=== PATIENT | female | born 1940 | race Caucasian/White ===

== ENCOUNTER 2017-02-12 19:03 | Emergency (ER) | payer MEDICARE, BC ==
[2017-02-12 19:37] VITALS: BP 156/82
--- NOTE | 2017-02-12 20:07 | EDM.PDOC ---
[id number]: TICK BITE Time Seen by Provider: 02/12/17 20:10 Source of Information: Reports: Patient History Limitations: Reports: No Limitations - History of Present Illness INITIAL COMMENTS - FREE TEXT/NARRATIVE: pt has a small tick imbedded in area between her breasts. She was not able to get it completely out. Onset: Today Duration: Hour(s):, Other (pt removed part of the tick. ) Location: Reports: Chest Associated Symptoms: Reports: No Other Symptoms - Related Data Allergies Allergy/AdvReac Type Severity Reaction Status Date / Time oxaprozin [Oxaprozin] Allergy Unknown Cannot Unverified 02/12/17 19:38 Remember Home Meds: Home Meds Aspirin [Low Dose Aspirin EC] 81 mg PO DAILY 06/26/14 [History] Clopidogrel Bisulfate [Clopidogrel] 75 mg PO DAILY 06/26/14 [History] Levothyroxine Sodium [Synthroid] 75 mcg PO DAILY 06/26/14 [History] Lisinopril 40 mg PO DAILY 06/26/14 [History] Multivitamin [Daily Multiple Vitamin] 1 tab PO DAILY 06/26/14 [History] Rosuvastatin [Crestor] 40 mg PO BEDTIME 06/26/14 [History] amLODIPine Besylate [Amlodipine Besylate] 10 mg PO DAILY 06/26/14 [History] metFORMIN [Glucophage XR] 500 mg PO DAILY 06/26/14 [History] Atenolol 50 mg PO DAILY #30 tablet 06/28/14 [Rx] Hydrocodone/Acetaminophen [Hydrocodon-Acetaminophen 5-325] 1 - 2 tab PO Q6H PRN 11/25/14 [History] Omeprazole [Prilosec] 20 mg PO DAILY 11/25/14 [History] predniSONE [Prednisone] 5 mg PO DAILY 11/25/14 [History] Past Medical History - Infectious Disease History Infectious Disease History: Reports: Chicken Pox Social & Family History - Tobacco Use Smoking Status *Q: Never Smoker Years of Tobacco use: 30 Used Tobacco, but Quit: Yes Month Tobacco Last Used: 1998 Second Hand Smoke Exposure: No - Caffeine Use Caffeine Use: Reports: Coffee, Tea - Alcohol Use Days Per Week of Alcohol Use: 0 Number of Drinks Per Day: 1 Total Drinks Per Week: 0 - Recreational Drug Use Recreational Drug Use: No ED ROS GENERAL - Review of Systems Review Of Systems: See Below Constitutional: Reports: No Symptoms HEENT: Reports: No Symptoms Respiratory: Reports: No Symptoms Cardiovascular: Reports: No Symptoms Endocrine: Reports: No Symptoms GI/Abdominal: Reports: No Symptoms : Reports: No Symptoms Skin: Reports: Other ( deer tick stuck between her breasts. This was cleaned and removed without difficulty. ) ED EXAM, ANIMAL BITE - Physical Exam Exam: See Below Exam Limited By: No Limitations General Appearance: Alert Ears: Normal External Exam Nose: Normal Inspection Throat/Mouth: Normal Inspection Skin Exam: Other (pt had a deer tick stuck between her breasts . Only part of the tick was removed. The rest was removed with out difficulty) Course - Vital Signs Last Recorded V/S: Last Vital Signs Temp 35.9 C 02/12/17 19:38 Pulse 70 02/12/17 19:38 Resp 16 02/12/17 19:38 BP 156/82 H 02/12/17 19:38 Pulse Ox 95 02/12/17 19:38 Departure - Departure Time of Disposition: 20:05 Disposition: Home, Self-Care 01 Condition: fair Clinical Impression: Dermacentor andersoni tick bite - Discharge Information Instructions: Insect Bite, [id number] Referrals: Ash Cox MD [Primary Care Provider] - Forms: ED Department Discharge Care Plan Goals: doxycyline 100mg bid for 7 days. moist warm packs.
== END 2017-02-12 20:24 | disposition home or self-care (01) ==
LOC: JP.ED 19:03
DX: S20.169A Insect bite (nonvenomous) of breast, unspecified breast, initial encounter (principal); Z88.8 Allergy status to other drugs, medicaments and biological substances; Z79.82 Long term (current) use of aspirin; Z79.84 Long term (current) use of oral hypoglycemic drugs; Z79.899 Other long term (current) drug therapy; W57.XXXA Bitten or stung by nonvenomous insect and other nonvenomous arthropods, initial encounter
CPT/HCPCS: 99282; 99283

== ENCOUNTER 2017-08-18 13:41 | Emergency (ER) | payer MEDICARE, BC ==
--- NOTE | 2017-08-18 14:21 | EDM.PDOC ---
ED HPI GENERAL MEDICAL PROBLEM - General Chief Complaint: Neuro Symptoms/Deficits Stated Complaint: MEDICAL VIA [facility] Time Seen by Provider: 08/18/17 14:00 Source of Information: Reports: Patient, EMS, Family History Limitations: Reports: No Limitations - History of Present Illness INITIAL COMMENTS - FREE TEXT/NARRATIVE: 77-year-old female had just finished a large meal when she felt the pain in her shoulders and felt uncomfortable. She then felt lightheaded and woozy, her speech was slurred and she became very pale and diaphoretic. She had had a previous stroke in the family got very concerned so called EMS. A family member was an EMT and took her blood pressure which was low and her pulse was only 60. When EMS arrived her symptoms were resolving, she was stable in route and had no neurologic deficits. She had no chest pain, shortness of breath, palpitations or other symptoms. Onset: Sudden Severity: Moderate Associated Symptoms: Reports: Diaphoresis, Weakness. Denies: Fever/Chills, Headaches, Nausea/Vomiting, Shortness of Breath Right Shoulder Pain Score (Numeric/FACES): 1 - Related Data Allergies Allergy/AdvReac Type Severity Reaction Status Date / Time oxaprozin [Oxaprozin] Allergy Unknown Cannot Verified 08/18/17 13:55 Remember Home Meds: Home Meds Aspirin [Low Dose Aspirin EC] 81 mg PO DAILY 06/26/14 [History] Clopidogrel Bisulfate [Clopidogrel] 75 mg PO DAILY 06/26/14 [History] Levothyroxine Sodium [Synthroid] 75 mcg PO DAILY 06/26/14 [History] Lisinopril 40 mg PO DAILY 06/26/14 [History] Multivitamin [Daily Multiple Vitamin] 1 tab PO DAILY 06/26/14 [History] Rosuvastatin [Crestor] 40 mg PO BEDTIME 06/26/14 [History] amLODIPine Besylate [Amlodipine Besylate] 10 mg PO DAILY 06/26/14 [History] metFORMIN [Glucophage XR] 500 mg PO DAILY 06/26/14 [History] Atenolol 50 mg PO DAILY #30 tablet 06/28/14 [Rx] Hydrocodone/Acetaminophen [Hydrocodon-Acetaminophen 5-325] 1 - 2 tab PO Q6H PRN 11/25/14 [History] Omeprazole [Prilosec] 20 mg PO DAILY 11/25/14 [History] predniSONE [Prednisone] 5 mg PO DAILY 11/25/14 [History] Past Medical History Cardiovascular History: Reports: High Cholesterol, Hypertension 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: HYSTERECTOMY Neurological History: Reports: CVA Endocrine/Metabolic History: Reports: Diabetes, Type II, Hypothyroidism Other Hematologic History: BILAT LE DVT - Infectious Disease History Infectious Disease History: Reports: Chicken Pox - Past Surgical History Other HEENT Surgeries/Procedures: PREVIOUS CVA 2001 Musculoskeletal Surgical History: Reports: Knee Replacement Social & Family History - Tobacco Use Smoking Status *Q: Unknown Ever Smoked Years of Tobacco use: 30 Used Tobacco, but Quit: Yes Month Tobacco Last Used: 1998 Second Hand Smoke Exposure: No - Caffeine Use Caffeine Use: Reports: Coffee, Tea - Alcohol Use Days Per Week of Alcohol Use: 0 Number of Drinks Per Day: 1 Total Drinks Per Week: 0 - Recreational Drug Use Recreational Drug Use: No ED ROS GENERAL - Review of Systems Review Of Systems: See Below Constitutional: Denies: Fever, Chills Respiratory: Denies: Shortness of Breath Cardiovascular: Denies: Chest Pain, Palpitations GI/Abdominal: Denies: Abdominal Pain Musculoskeletal: Reports: Shoulder Pain (Bilateral shoulder pain), Other ( Chronic arthritic pains) Skin: Reports: Pallor, Diaphoresis ED EXAM, NEURO - Physical Exam Exam: See Below Exam Limited By: No Limitations General Appearance: Alert, No Apparent Distress Eye Exam: Bilateral Eye: Normal Inspection Throat/Mouth: Normal Inspection Neck: Normal Inspection Respiratory/Chest: No Respiratory Distress, Lungs Clear Cardiovascular: Regular Rate, Rhythm. No: Extra Beats GI/Abdominal: Normal Bowel Sounds Neurological: Alert, No Motor/Sensory Deficits, Oriented x 3 Psychiatric: Normal Affect, Normal Mood Skin Exam: Warm, Dry Course - Vital Signs Last Recorded V/S: Last Vital Signs Temp 97.9 F 08/18/17 13:49 Pulse 72 08/18/17 14:53 Resp 14 08/18/17 14:15 BP 119/58 L 08/18/17 14:53 Pulse Ox 94 L 08/18/17 13:49 - Re-Assessments/Exams Free Text/Narrative Re-Assessment/Exam: 08/18/17 14:20 Glucose was checked by EMS which was normal. EKG by EMS was also normal. 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 She was ambulated without difficulty so was discharged without any further workup. Departure - Departure Time of Disposition: 15:02 Disposition: Home, Self-Care 01 Condition: Good Clinical Impression: Vasovagal near syncope - Discharge Information Instructions: Near-Syncope, [id number] Referrals: Ash Cox MD [Primary Care Provider] - Forms: ED Department Discharge Care Plan Goals: Continue your current medications, stay hydrated and increase activity as tolerated. Return anytime if worsening or concerns.
[2017-08-18 14:54] VITALS: BP 119/58
== END 2017-08-18 15:03 | disposition home or self-care (01) ==
LOC: JP.ED 13:41
DX: R55 Syncope and collapse (principal); I10 Essential (primary) hypertension; E11.9 Type 2 diabetes mellitus without complications; E03.9 Hypothyroidism, unspecified; Z79.84 Long term (current) use of oral hypoglycemic drugs; Z79.899 Other long term (current) drug therapy; Z79.82 Long term (current) use of aspirin; Z88.8 Allergy status to other drugs, medicaments and biological substances
CPT/HCPCS: 99283; 99284

== ENCOUNTER 2020-03-15 08:36 | Emergency (ER) | payer MEDICARE ==
[2020-03-15] MEDS ORDERED: Ondansetron 4 MG/2 ML SDV IVPUSH ONE (09:43)
[2020-03-15] MEDS ORDERED: HYDROmorphone 0.5 MG/0.5 ML Syringe IVPUSH ONE (09:44)
[2020-03-15] MEDS ORDERED: Sodium Chloride 0.9% 1,000 ML IV SCH ×2 (09:45→11:15)
--- NOTE | 2020-03-15 11:15 | CRLCT ---
INDICATION: Right-sided pain, renal insufficiency TECHNIQUE: CT abdomen and pelvis without contrast. COMPARISON: None FINDINGS: The visualized portions of the lung bases are clear. There is moderate right hydronephrosis with a 8 mm obstructing stone (HU 310) in the proximal right ureter, approximately 3.5 cm from the ureteropelvic junction. There is moderate perinephric fat stranding. Additional punctate stones are seen within both kidneys. The largest stone on the left is seen within the upper pole and measures 4 mm. Negative for left hydronephrosis. The bladder is partially distended and unremarkable. Evaluation of the abdominal viscera is limited due to lack of IV contrast. There is a 0.8 cm hypoattenuating lesion within the posterior aspect of the right hepatic lobe, too small to fully characterize, however likely represents a simple cyst. There remainder of the unenhanced liver is unremarkable. The gallbladder is nondistended. The spleen, pancreas and adrenal glands are unremarkable. There are no dilated loops of small bowel to suggest obstruction.The appendix is not visualized.There is a trace amount of free fluid within the pelvis. Negative for intraperitoneal free air. The visualized osseous structures are unremarkable. There is moderate atherosclerotic calcification of the abdominal aorta and common iliacs. IMPRESSION: 1. Moderate right hydronephrosis and perinephric inflammatory changes with a 8 mm obstructing stone in the proximal right ureter. 2. Additional nonobstructing stones bilaterally. Dictated by Olivia Serra MD @ 03/15/2020 11:14:35 AM Please note that all CT scans at this facility use dose modulation, iterative reconstruction, and/or weight-based dosing when appropriate to reduce radiation dose to as low as reasonably achievable. Dictated by: Olivia Serra MD @ 03/15/2020 11:14:49 (Electronically Signed)
--- NOTE | 2020-03-15 12:31 | EDM.PDOC ---
ED HPI GENERAL MEDICAL PROBLEM - General Chief Complaint: Abdominal Pain Stated Complaint: R ABD PAIN, DIARRHEA, VOMITING Time Seen by Provider: 03/15/20 09:15 Source of Information: Reports: Patient, Family History Limitations: Reports: No Limitations - History of Present Illness INITIAL COMMENTS - FREE TEXT/NARRATIVE: pt arrived with rt sided abdomanal pain. She started vomiting in the nite and she ended up with alot of loose stools. The pain has been difficult. Onset: Today, Other ( started in the nite. ) Duration: Hour(s): Location: Reports: Abdomen Associated Symptoms: Reports: Nausea/Vomiting, Other ( diarrhea) Right Lower Abdomen Pain Score (Numeric/FACES): 7 - Related Data Allergies Allergy/AdvReac Type Severity Reaction Status Date / Time oxaprozin [Oxaprozin] Allergy Unknown Cannot Verified 03/15/20 08:59 Remember Home Meds: Home Meds Aspirin [Low Dose Aspirin EC] 81 mg PO DAILY 06/26/14 [History] Clopidogrel Bisulfate [Clopidogrel] 75 mg PO DAILY 06/26/14 [History] Levothyroxine Sodium [Synthroid] 75 mcg PO DAILY 06/26/14 [History] Lisinopril 40 mg PO DAILY 06/26/14 [History] Multivitamin [Daily Multiple Vitamin] 1 tab PO DAILY 06/26/14 [History] Rosuvastatin [Crestor] 40 mg PO BEDTIME 06/26/14 [History] amLODIPine Besylate [Amlodipine Besylate] 10 mg PO DAILY 06/26/14 [History] metFORMIN [Glucophage XR] 500 mg PO DAILY 06/26/14 [History] atenoloL [Atenolol] 50 mg PO DAILY #30 tablet 06/28/14 [Rx] Omeprazole [Prilosec] 20 mg PO DAILY 11/25/14 [History] Past Medical History HEENT History: Reports: Impaired Vision Cardiovascular History: Reports: High Cholesterol, Hypertension 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 Neurological History: Reports: CVA Endocrine/Metabolic History: Reports: Diabetes, Type II, Hypothyroidism Other Hematologic History: BILAT LE DVT - Infectious Disease History Infectious Disease History: Reports: Chicken Pox, Measles, Mumps - Past Surgical History Other HEENT Surgeries/Procedures: PREVIOUS CVA 2001 GI Surgical History: Reports: Colonoscopy Female Surgical History: Reports: Hysterectomy, Salpingo-Oophorectomy Musculoskeletal Surgical History: Reports: Knee Replacement Social & Family History - Tobacco Use Smoking Status *Q: Former Smoker Years of Tobacco use: 30 Packs/Tins Daily: 1 Used Tobacco, but Quit: Yes Month/Year Tobacco Last Used: 1998 Second Hand Smoke Exposure: No - Caffeine Use Caffeine Use: Reports: Coffee - Recreational Drug Use Recreational Drug Use: No ED ROS GENERAL - Review of Systems Review Of Systems: See Below Constitutional: Reports: Diaphoresis HEENT: Reports: No Symptoms Respiratory: Reports: No Symptoms Cardiovascular: Reports: No Symptoms Endocrine: Reports: No Symptoms GI/Abdominal: Reports: Abdominal Pain, Diarrhea, Nausea, Vomiting : Reports: No Symptoms Musculoskeletal: Reports: No Symptoms Skin: Reports: No Symptoms ED EXAM, GI/ABD - Physical Exam Exam: See Below Text/Narrative:: pt arrived with severe rt lower abdomanal pain. She has been vomiting most of the nite. Exam Limited By: No Limitations General Appearance: Alert, Anxious, Moderate Distress, Other (pupils equal and reactive to lite. ) Ears: Normal TMs Nose: Normal Inspection Throat/Mouth: Normal Inspection Head: Atraumatic Neck: Normal Inspection Respiratory/Chest: No Respiratory Distress Cardiovascular: Regular Rate, Rhythm GI/Abdominal Exam: Soft, Tender, Other (pt is tender in the rt lower abdoman. ) (Female) Exam: Deferred Rectal (Female) Exam: Deferred Back Exam: Normal Inspection Extremities: Normal Inspection Course - Vital Signs Last Recorded V/S: Last Vital Signs Temp 36.0 C L 03/15/20 09:11 Pulse 73 03/15/20 12:52 Resp 16 03/15/20 09:11 BP 134/53 L 03/15/20 12:52 Pulse Ox 94 L 03/15/20 12:52 - Orders/Labs/Meds Labs: Laboratory Tests 03/15/20 03/15/20 03/15/20 Range/Units 08:56 09:06 09:06 WBC 10.4 (4.5-11.0) K/uL RBC 3.55 (3.30-5.50) M/uL Hgb 10.4 L (12.0-15.0) g/dL Hct 32.8 L (36.0-48.0) % MCV 92 (80-98) fL MCH 29 (27-31) pg MCHC 32 (32-36) % Plt Count 277 (150-400) K/uL Neut % (Auto) 81 H (36-66) % Lymph % (Auto) 13 L (24-44) % [place] % (Auto) 6 (2-6) % Eos % (Auto) 0 L (2-4) % Baso % (Auto) 0 (0-1) % Sodium 141 (140-148) mmol/L Potassium 4.3 (3.6-5.2) mmol/L Chloride 105 (100-108) mmol/L Carbon Dioxide 22 (21-32) mmol/L Anion Gap 14.1 H (5.0-14.0) mmol/L BUN 33 H (7-18) mg/dL Creatinine 2.4 H D (0.6-1.0) mg/dL Est Cr Clr Drug Dosing 15.46 mL/min Estimated GFR (MDRD) 19 L (>60) Glucose 171 H (74-106) mg/dL Calcium 10.0 (8.5-10.1) mg/dL Total Bilirubin 0.3 (0.2-1.0) mg/dL AST 19 (15-37) U/L ALT 29 (12-78) U/L Alkaline Phosphatase 175 H D (46-116) U/L C-Reactive Protein 1.66 H (0.0-0.3) mg/dL Total Protein 7.2 (6.4-8.2) g/dL Albumin 3.3 L (3.4-5.0) g/dL Globulin 3.9 H (2.3-3.5) g/dL Albumin/Globulin Ratio 0.9 L (1.2-2.2) Urine Color Yellow (YELLOW) Urine Appearance Cloudy A (CLEAR) Urine pH 6.0 (5.0-8.0) Ur Specific [place] 1.025 (1.008-1.030) Urine Protein >=300 H (NEGATIVE) mg/dL Urine Glucose (UA) Negative (NEGATIVE) mg/dL Urine Ketones Trace H (NEGATIVE) mg/dL Urine Occult Blood Large H (NEGATIVE) Urine Nitrite Negative (NEGATIVE) Urine Bilirubin Negative (NEGATIVE) Urine Urobilinogen 0.2 (0.2-1.0) EU/dL Ur Leukocyte Esterase Negative (NEGATIVE) Urine RBC 50-75 H (0-5) Urine WBC 0-5 (0-5) Ur Epithelial Cells Not seen Amorphous Sediment Not seen Urine Bacteria Not seen Urine Mucus Moderate Urine Other Meds: Medications Discontinued Medications Generic Name Dose Route Start Last Admin Trade Name Gil PRN Reason Stop Dose Admin Hydromorphone HCl 0.5 mg 03/15/20 09:44 03/15/20 11:01 Dilaudid IVPUSH 03/15/20 09:45 0.5 mg ONETIME ONE Administration Sodium Chloride 1,000 mls @ 999 mls/hr 03/15/20 09:45 03/15/20 10:59 Normal Saline IV 999 mls/hr ASDIRECTED NAY Administration Sodium Chloride 1,000 mls @ 500 mls/hr 03/15/20 11:15 03/15/20 12:44 Normal Saline IV 500 mls/hr ASDIRECTED NAY Administration Ondansetron HCl 4 mg 03/15/20 09:43 03/15/20 11:00 Zofran IVPUSH 03/15/20 09:44 4 mg ONETIME ONE Administration Tamsulosin HCl 0.4 mg 03/15/20 12:50 03/15/20 12:57 Flomax PO 03/15/20 12:51 0.4 mg ONETIME ONE Administration - Re-Assessments/Exams Free Text/Narrative Re-Assessment/Exam: 03/15/20 12:26 pt has a gfr of 19. She recently had much better kidney funtion. She does not have a fever 03/15/20 13:11 pt has a 8mm stone in the rt ureter ith obstruction 03/15/20 13:11 pt was given rocephen 1 gm iv. 03/17/20 07:13 Departure - Departure Time of Disposition: 13:12 Disposition: DC/Tfer to Acute Hospital 02 Condition: Fair Clinical Impression: Renal insufficiency, Ureteral calculus, right - Discharge Information Referrals: PCP,None [Primary Care Provider] - Forms: ED Department Discharge Care Plan Goals: transfer to [facility]. Sepsis Event Note (ED) - Evaluation Sepsis Screening Result: No Definite Risk
[2020-03-15] MEDS ORDERED: Tamsulosin 0.4 MG Cap.ER PO ONE (12:50)
[2020-03-15 13:22] VITALS: BP 134/53; PULSE 73
[2020-03-16] MEDS ORDERED: Tamsulosin 0.4 MG Cap.ER PO SCH (09:00)
== END 2020-03-15 13:53 ==
LOC: JP.ED 08:36
DX: N13.2 Hydronephrosis with renal and ureteral calculous obstruction (principal); N28.9 Disorder of kidney and ureter, unspecified; R11.2 Nausea with vomiting, unspecified; I10 Essential (primary) hypertension; E78.00 Pure hypercholesterolemia, unspecified; E03.9 Hypothyroidism, unspecified; E11.9 Type 2 diabetes mellitus without complications; Z88.6 Allergy status to analgesic agent; Z79.82 Long term (current) use of aspirin; Z79.899 Other long term (current) drug therapy; Z86.73 Personal history of transient ischemic attack (TIA), and cerebral infarction without residual deficits; Z87.891 Personal history of nicotine dependence
CPT/HCPCS: 36415; 74176; 80053; 81001; 82272; 85025; 86140; 87086; 96361; 96374; 96375; 99285; A9270; J1170; J2405; J7030

== ENCOUNTER 2020-12-11 10:52 | Observation (INO) | payer MEDICARE ==
[2020-12-11] MEDS ORDERED: diphenhydrAMINE 25 MG Cap PO ONE (10:56)
[2020-12-11] MEDS ORDERED: Acetaminophen 325 MG Tab PO ONE (10:56)
[2020-12-11] MEDS ORDERED: Sodium Chloride 0.9% 1,000 ML IV SCH (12:30)
--- NOTE | 2020-12-11 13:05 | PCM.HP.2 ---
H&P History of Present Illness - General Date of Service: 12/11/20 Admit Problem/Dx: Admission Diagnosis/Problem Admission Diagnosis/Problem Anemia Source of Information: Patient, Family, Provider, RN Notes Reviewed History Limitations: Reports: No Limitations - History of Present Illness Initial Comments - Free Text/Narative: Ms. Kerr is an 80-year-old woman who was admitted as a direct admission from the outpatient area with anemia and severe thrombocytopenia. She has a known history of stage IV pancreatic carcinoma and has been receiving chemotherapy every other week. There has been a good response with current chemotherapeutic regimen and a good decrease in tumor marker. Since her last chemotherapy approximately 1 week ago she has felt more weak and tired. Appetite has been somewhat poor. Labs were obtained today, hemoglobin was found to be 7.5 which is a decrease over the past week and platelets were 7000. She has had no evidence of spontaneous bleeding or underlying infection. During the past week is also developed mild to moderate peripheral edema both lower extremities as well as her right upper extremity. She has had a history of chronic kidney disease stage III, over the past week there has been an increase in her creatinine from 1.4 to 2.1. - Related Data Allergies/Adverse Reactions: Allergies Allergy/AdvReac Type Severity Reaction Status Date / Time oxaprozin [Oxaprozin] Allergy Unknown Cannot Verified 11/14/20 08:39 Remember Home Medications: Home Meds Aspirin [Low Dose Aspirin EC] 81 mg PO DAILY 06/26/14 [History] Clopidogrel Bisulfate [Clopidogrel] 75 mg PO DAILY 06/26/14 [History] Levothyroxine Sodium [Synthroid] 75 mcg PO DAILY 06/26/14 [History] Rosuvastatin [Crestor] 40 mg PO BEDTIME 06/26/14 [History] amLODIPine Besylate [Amlodipine Besylate] 10 mg PO DAILY 06/26/14 [History] Omeprazole [Prilosec] 20 mg PO DAILY 11/25/14 [History] Acetaminophen 650 mg PO Q6HR PRN 09/05/20 [History] Cholecalciferol (Vitamin D3) [Vitamin D3] 1,000 unit PO DAILY 09/05/20 [History] Cyanocobalamin (Vitamin B-12) [Vitamin B-12] 1,000 mcg PO DAILY 09/05/20 [History] Docusate Sodium [Colace] 100 mg PO BID PRN 09/05/20 [History] Metoprolol Tartrate [Lopressor] 50 mg PO BID 09/05/20 [History] bisacodyL [Dulcolax] 5 mg PO DAILY PRN 09/05/20 [History] Past Medical History HEENT History: Reports: Impaired Vision Cardiovascular History: Reports: High Cholesterol, Hypertension 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: Other OB/BYN History: HYSTERECTOMY Neurological History: Reports: CVA Endocrine/Metabolic History: Reports: Diabetes, Type II, Hypothyroidism Other Hematologic History: BILAT LE DVT - Infectious Disease History Infectious Disease History: Reports: Chicken Pox, Measles, Mumps - Past Surgical History Other HEENT Surgeries/Procedures: PREVIOUS CVA 2001 GI Surgical History: Reports: Colonoscopy Female Surgical History: Reports: Hysterectomy, Salpingo-Oophorectomy Musculoskeletal Surgical History: Reports: Knee Replacement Social & Family History - Caffeine Use Caffeine Use: Reports: Coffee H&P Review of Systems - Review of Systems: Review Of Systems: See Below General: Reports: Malaise, Weakness, Fatigue, Decreased Appetite. Denies: Fever, Chills, Diaphoresis HEENT: Reports: No Symptoms Pulmonary: Reports: No Symptoms Cardiovascular: Reports: Edema. Denies: Chest Pain, Palpitations, Dyspnea on Exertion, Orthopnea, PND Gastrointestinal: Reports: No Symptoms Genitourinary: Reports: No Symptoms Musculoskeletal: Reports: No Symptoms Skin: Reports: No Symptoms Psychiatric: Reports: No Symptoms Neurological: Reports: No Symptoms Hematologic/Lymphatic: Reports: Anemia Immunologic: Reports: No Symptoms Exam - Exam Exam: See Below - Vital Signs Vital Signs: Last Vital Signs Temp 96.8 F L 12/11/20 12:32 Pulse 70 12/11/20 12:32 Resp 16 12/11/20 12:32 BP 118/59 L 12/11/20 12:32 Pulse Ox 99 12/11/20 12:32 - Exam Quality Assessment: DVT Prophylaxis General: Alert, Oriented, Cooperative, Mild Distress HEENT: Conjunctiva Clear, Hearing Intact, Mucosa Moist & [place], Normal Nasal Septum, Posterior Pharynx Clear, Pupils Equal Neck: Supple, Trachea Midline, +2 Carotid Pulse wo Bruit Lungs: Clear to Auscultation, Normal Respiratory Effort Cardiovascular: Regular Rate, Regular Rhythm, Normal S1, Normal S2. No: Systolic Murmur, Diastolic Murmur GI/Abdominal Exam: Soft, Non-Tender, No Organomegaly, No Distention Back Exam: Normal Inspection, Full Range of Motion Extremities: Non-Tender, Pedal Edema Skin: Warm, Dry, Intact Neurological: Cranial Nerves Intact, Strength Equal Bilateral, Normal Speech, Normal Tone, Sensation Intact. No: Focal Deficit Neuro Extensive - Mental Status: Alert, Oriented x3, Normal Mood/Affect, Normal Cognition, Memory Intact Sepsis Event Note - Focused Exam Vital Signs: Vital Signs Temp Pulse Resp BP Pulse Ox 12/11/20 12:32 96.8 F L 70 16 118/59 L 99 *Q Meaningful Use (ADM) - VTE *Q VTE Pharmacological Contraindications *Q: Thrombocytopenia - VTE Risk Assess *Q Each Risk Factor Represents 1 Point: None Total Score 1 Point Risk Factors: 0 Each Risk Factor Represents 2 Points: Malignancy (present or previous) Total Score 2 Point Risk Factors: 2 Each Risk Factor Represents 3 Points: Age 75 Years or Greater Total Score 3 Point Risk Factors: 3 Each Risk Factor Represents 5 Points: None Total Score 5 Point Risk Factors: 0 Venous Thromboembolism Risk Factor Score *Q: 5 Problem List Initiated/Reviewed/Updated: Yes Orders Last 24hrs: Active Orders 24 hr Category Date Time Status Patient Status Manage Transfer [TRANSFER] Routine ADT 12/11/20 12:06 Active PLATELETS [facility] [BBK] Routine Lab 12/11/20 10:54 Ordered RED BLOOD CELLS LP [BBK] Routine Lab 12/11/20 10:54 Ordered TYPE AND SCREEN [BBK] Routine Lab 12/11/20 10:54 Ordered Furosemide [Lasix] Med 12/11/20 14:00 Once 20 mg IVPUSH ONETIME ONE Sodium Chloride 0.9% [Normal Saline] 1,000 ml Med 12/11/20 12:30 Active IV ASDIRECTED Transfuse Platelets [COMM] Urgent Oth 12/11/20 16:00 Ordered Transfuse Red Blood Cells [COMM] Urgent Oth 12/11/20 10:54 Ordered Resuscitation Status Routine Resus Stat 12/11/20 12:08 Ordered Medication Orders Furosemide (Furosemide 20 Mg/2 Ml Vial) 20 mg IVPUSH ONETIME ONE Stop: 12/11/20 14:01 Sodium Chloride (Normal Saline) 1,000 mls @ 50 mls/hr IV ASDIRECTED NAY Stop: 12/11/20 18:00 Last Admin: 12/11/20 12:15 Dose: 50 mls/hr Documented by: YEFRI Assessment/Plan Comment:: ASSESSMENT AND PLAN ANEMIA AND THROMBOCYTOPENIA-secondary to recent chemotherapy, there is also leukopenia but not absolute neutropenia -Transfuse 2 units of red blood cells -Transfuse 1 unit of platelets -Follow-up labs in a.m. STAGE IV PANCREATIC CARCINOMA-she has been receiving palliative chemotherapy CHRONIC KIDNEY DISEASE STAGE IIIb-creatinine has increased over the last week and now to 2.1. Possibly secondary to dehydration and intravascular volume depletion -Closely monitor urine output and renal function -Reassess labs in a.m. PERIPHERAL EDEMA-mild edema both lower extremities, more prominent mild to moderate edema right upper extremity -She will receive furosemide 20 mg IV after first unit of red blood cells -Reassess in a.m. MAINTENANCE ISSUES -DVT prophylaxis; hold on anticoagulation because of thrombocytopenia -GI prophylaxis; not indicated -Maddox catheter; not indicated -Nutrition; regular diet -Nicotine dependence; not required CODE STATUS-DNR/DNI ADMISSION STATUS-this patient will be admitted to observation status, expect no more than a one night hospital stay for evaluation and management of problems as outlined above. DISPOSITION-anticipate discharge to home after the hospital stay. PRIMARY CARE PROVIDER-Dr. Cox - Mortality Measure Prognosis:: Poor
[2020-12-11] MEDS ORDERED: Furosemide 20 MG/2 ML VIAL IVPUSH ONE (14:00)
[2020-12-11] MEDS ORDERED: Polyethylene Glycol 3350 Powder 17 GM Packet PO PRN (16:59)
[2020-12-11] MEDS ORDERED: Sodium Chloride 0.9% 10 ML Syringe FLUSH PRN (16:59)
[2020-12-11] MEDS ORDERED: Acetaminophen 325 MG Tab PO PRN (16:59)
[2020-12-11] MEDS ORDERED: Ondansetron 4 MG/2 ML SDV IV PRN (16:59)
[2020-12-11] MEDS ORDERED: Bisacodyl 5 MG Tab PO PRN (16:59)
[2020-12-11] MEDS ORDERED: Albuterol 0.083% 2.5 MG/3 ML Neb Soln NEB PRN (16:59)
[2020-12-11] MEDS ORDERED: Docusate Sodium 100 MG Cap PO PRN (16:59)
[2020-12-11] MEDS: Metoprolol Tartrate 50 MG Tab **OWN MED PO SCH (20:25)
[2020-12-11] MEDS ORDERED: Rosuvastatin 10 MG Tab PO SCH (21:00)
[2020-12-11] MEDS ORDERED: Metoprolol Tartrate 50 MG Tab PO SCH (21:00)
[2020-12-12] MEDS ORDERED: OMEPRAZOLE 20MG CAP (PTOM) PO SCH (07:30)
[2020-12-12] MEDS ORDERED: Pantoprazole 40 MG Tab.CR PO SCH (07:30)
[2020-12-12] MEDS ORDERED: Levothyroxine 25 MCG Tab PO SCH (07:30)
[2020-12-12] MEDS ORDERED: LEVOTHYROXINE 75MCG TAB (PTOM) PO SCH (07:30)
[2020-12-12 09:26] VITALS: BP 148/55; PULSE 82
[2020-12-12] MEDS: Metoprolol Tartrate 50 MG Tab **OWN MED PO SCH (09:29)
--- NOTE | 2020-12-12 10:44 | PCM.DCSUM1 ---
Discharge Summary - Hospital Course Brief History: Ms. Kerr is an 80-year-old woman who was admitted as a direct admission, to observation status, from outpatient area with anemia and thrombocytopenia, secondary to recent chemotherapy for stage IV pancreatic carcinoma. - Discharge Data Discharge Date: 12/12/20 Discharge Disposition: Home, Self-Care 01 Condition: Fair - Referral to Home Health Primary Care Physician: PCP None - Discharge Diagnosis/Problem(s) (1) Anemia SNOMED Code(s): 463176282 ICD Code: D64.9 - ANEMIA, UNSPECIFIED Status: Acute Current Visit: Yes (2) Thrombocytopenia SNOMED Code(s): 328096052 ICD Code: D69.6 - THROMBOCYTOPENIA, UNSPECIFIED Status: Acute Current Visit: Yes (3) Pancreatic carcinoma SNOMED Code(s): 925463939 ICD Code: C25.9 - MALIGNANT NEOPLASM OF PANCREAS, UNSPECIFIED Status: Acute Current Visit: Yes (4) Renal insufficiency SNOMED Code(s): 976515983, 705499063 ICD Code: N28.9 - DISORDER OF KIDNEY AND URETER, UNSPECIFIED Status: Acute Current Visit: No - Patient Summary/Data Hospital Course: Ms. Kerr is an 80-year-old woman who was admitted as a direct admission from the outpatient area with anemia and severe thrombocytopenia. She has a known history of stage IV pancreatic carcinoma and has been receiving chemotherapy every other week. There has been a good response with current chemotherapeutic regimen and a good decrease in tumor marker. Since her last chemotherapy approximately 1 week ago she has felt more weak and tired. Appetite has been somewhat poor. Labs were obtained today, hemoglobin was found to be 7.5 which is a decrease over the past week and platelets were 7000. She has had no evidence of spontaneous bleeding or underlying infection. During the past week is also developed mild to moderate peripheral edema both lower extremities as well as her right upper extremity. She has had a history of chronic kidney disease stage III, over the past week there has been an increase in her creatinine from 1.4 to 2.1. On admission blood and platelet infusions were continued as previously ordered. She did receive IV furosemide after the first unit of red blood cells. She remained stable throughout the night and by the following morning reported that she was feeling improved with increase in energy. Globin level had come up to 9.2 and platelets were 30,000. Renal function remained stable with a creatinine of 2.2. She did not receive fluids during hospitalization because of the large amount of blood products that she did receive. We discussed options for management including staying another night for IV fluids to see if this improves renal function. Peripheral edema had improved significantly with almost total resolution of peripheral edema in the legs there was still mild edema noted in the right upper extremity. She preferred to be discharged but will agree to come in for laboratory studies on December 14. She will attempt to increase fluid intake and will return sooner if she has further difficulty. Activity will be as tolerated and she will resume her usual diet. She already has follow-up appointment scheduled with oncology for December 16. - Patient Instructions Diet: Usual Diet as Tolerated Activity: As Tolerated Other/Special Instructions: She already has follow-up scheduled with oncology for December 16. Please schedule follow-up laboratory studies at the hospital lab for Tuesday morning; BMP and CBC with differential. Have the patient wait until results are available and I will review them with her. - Discharge Plan *PRESCRIPTION DRUG MONITORING PROGRAM REVIEWED*: Not Applicable *COPY OF PRESCRIPTION DRUG MONITORING REPORT IN PATIENT EDWARD: Not Applicable Home Medications: Home Meds Levothyroxine Sodium [Synthroid] 75 mcg PO DAILY 06/26/14 [History] Rosuvastatin [Crestor] 40 mg PO BEDTIME 06/26/14 [History] amLODIPine Besylate [Amlodipine Besylate] 10 mg PO DAILY 06/26/14 [History] Omeprazole [Prilosec] 20 mg PO DAILY 11/25/14 [History] Acetaminophen 650 mg PO Q6HR PRN 09/05/20 [History] Cholecalciferol (Vitamin D3) [Vitamin D3] 1,000 unit PO DAILY 09/05/20 [History] Cyanocobalamin (Vitamin B-12) [Vitamin B-12] 1,000 mcg PO DAILY 09/05/20 [History] Docusate Sodium [Colace] 100 mg PO BID PRN 09/05/20 [History] Metoprolol Tartrate [Lopressor] 50 mg PO BID 09/05/20 [History] bisacodyL [Dulcolax] 5 mg PO DAILY PRN 09/05/20 [History] Referrals: Arlyn Cerda MD [Ordering Only Provider] - 12/16/20 (Please refer to [employer] printout of upcoming appointment times on 12/16/20) - Discharge Summary/Plan Comment DC Time >30 min.: No - Patient Data Vitals - Most Recent: Last Vital Signs Temp 97.8 F 12/12/20 07:55 Pulse 82 12/12/20 09:29 Resp 16 12/12/20 07:55 BP 148/55 H 12/12/20 09:29 Pulse Ox 99 12/12/20 07:55 Weight - Most Recent: 138 lb 7.205 oz I&O - Last 24 hours: Intake & Output 12/11/20 12/12/20 12/12/20 22:59 06:59 14:59 Intake Total 901 360 Balance 901 360 Lab Results - Last 24 hrs: Laboratory Results - last 24 hr 12/11/20 12/12/20 12/12/20 Range/Units 12:30 05:13 05:13 WBC 2.7 L (4.5-11.0) K/uL RBC 3.06 L (3.30-5.50) M/uL Hgb 9.2 L (12.0-15.0) g/dL Hct 27.3 L (36.0-48.0) % MCV 89 (80-98) fL MCH 30 (27-31) pg MCHC 34 (32-36) % Plt Count 30 L (150-400) K/uL Neut % (Auto) 59 (36-66) % Lymph % (Auto) 37 (24-44) % Bradley % (Auto) 1 L (2-6) % Eos % (Auto) 3 (2-4) % Baso % (Auto) 0 (0-1) % Sodium 143 (140-148) mmol/L Potassium 5.2 (3.6-5.2) mmol/L Chloride 109 H (100-108) mmol/L Carbon Dioxide 20 L (21-32) mmol/L Anion Gap 19.2 H (5.0-14.0) mmol/L BUN 45 H (7-18) mg/dL Creatinine 2.3 H (0.6-1.0) mg/dL Est Cr Clr Drug Dosing 15.17 mL/min Estimated GFR (MDRD) 20 L (>60) Glucose 97 (74-106) mg/dL Calcium 8.4 L D (8.5-10.1) mg/dL Total Bilirubin 0.5 D (0.2-1.0) mg/dL AST 30 (15-37) U/L ALT 28 (12-78) U/L Alkaline Phosphatase 116 (46-116) U/L Total Protein 5.2 L (6.4-8.2) g/dL Albumin 2.4 L (3.4-5.0) g/dL Globulin 2.8 (2.3-3.5) g/dL Albumin/Globulin Ratio 0.9 L (1.2-2.2) Blood Type O POSITIVE Gel Antibody Screen Negative Crossmatch See Detail Med Orders - Current: Current Medications Acetaminophen (Acetaminophen 325 Mg Tab) 650 mg PO Q4H PRN PRN Reason: Pain (Mild 1-3)/fever Last Admin: 12/12/20 02:29 Dose: 650 mg Documented by: Albuterol (Albuterol 0.083% 2.5 Mg/3 Ml Neb Soln) 2.5 mg NEB Q4H PRN PRN Reason: Shortness Of Breath/wheezing Bisacodyl (Bisacodyl 5 Mg Tab) 5 mg PO DAILY PRN PRN Reason: Constipation Docusate Sodium (Docusate Sodium 100 Mg Cap) 100 mg PO BID PRN PRN Reason: Constipation Metoprolol Tartrate (Metoprolol Tartrate 50 Mg Tab Own Med) 50 mg PO BID [facility] Last Admin: 12/12/20 09:29 Dose: 50 mg Documented by: Ondansetron HCl (Ondansetron 4 Mg/2 Ml Sdv) 4 mg IV Q4H PRN PRN Reason: Nausea/Vomiting Rosuvastatin ( Crestor) 40 Mg Tab * *Own Med 0 each PO BEDTIME [facility] Last Admin: 12/11/20 20:25 Dose: 1 each Documented by: Levothyroxine 75mcg (Tab (Ptom)) 1 each PO ACBREAKFAST [facility] Last Admin: 12/12/20 08:17 Dose: 1 each Documented by: Omeprazole 20mg Cap ((Ptom)) 1 each PO ACBREAKFAST [facility] Last Admin: 12/12/20 08:18 Dose: 1 each Documented by: Polyethylene Glycol (Polyethylene Glycol 3350 Powder 17 Gm Packet) 17 gm PO DAILY PRN PRN Reason: Constipation Sodium Chloride (Sodium Chloride 0.9% 10 Ml Syringe) 10 ml FLUSH ASDIRECTED PRN PRN Reason: Keep Vein Open Discontinued Medications Acetaminophen (Acetaminophen 325 Mg Tab) 650 mg PO NOW ONE Stop: 12/11/20 10:57 Last Admin: 12/11/20 13:09 Dose: 650 mg Documented by: Diphenhydramine HCl (Diphenhydramine 25 Mg Cap) 25 mg PO ONETIME ONE Stop: 12/11/20 10:57 Last Admin: 12/11/20 13:09 Dose: 25 mg Documented by: Furosemide (Furosemide 20 Mg/2 Ml Vial) 20 mg IVPUSH ONETIME ONE Stop: 12/11/20 14:01 Last Admin: 12/11/20 16:21 Dose: 20 mg Documented by: Sodium Chloride (Normal Saline) 1,000 mls @ 50 mls/hr IV ASDIRECTED NAY Stop: 12/11/20 18:00 Last Admin: 12/11/20 12:15 Dose: 50 mls/hr Documented by: Metoprolol Tartrate (Metoprolol Tartrate 50 Mg Tab) 50 mg PO BID NAY Rosuvastatin Calcium (Rosuvastatin 10 Mg Tab) 40 mg PO BEDTIME NAY - Exam Quality Assessment: Reports: DVT Prophylaxis General: Reports: Alert, Oriented, Cooperative, Mild Distress Lungs: Reports: Clear to Auscultation, Normal Respiratory Effort Cardiovascular: Reports: Regular Rate, Regular Rhythm, No Murmurs GI/Abdominal Exam: Soft, Non-Tender, No Organomegaly, No Distention Extremities: Non-Tender, No Pedal Edema *Q Meaningful Use (DIS) - VTE *Q VTE Pharmacological Contraindications *Q: Thrombocytopenia
== END 2020-12-12 11:01 | disposition home or self-care (01) ==
LOC: JP.BLOODTR 10:52 → JP.ICU 12:06
PROVIDERS: ADMIT Hospitalist; ATTEND Hospitalist
DX: D64.81 Anemia due to antineoplastic chemotherapy (principal); D69.6 Thrombocytopenia, unspecified; C25.9 Malignant neoplasm of pancreas, unspecified; I12.9 Hypertensive chronic kidney disease with stage 1 through stage 4 chronic kidney disease, or unspecified chronic kidney disease; E11.22 Type 2 diabetes mellitus with diabetic chronic kidney disease; N18.32 Chronic kidney disease, stage 3b; R60.0 Localized edema; D72.819 Decreased white blood cell count, unspecified; E78.00 Pure hypercholesterolemia, unspecified; E03.9 Hypothyroidism, unspecified; Z88.2 Allergy status to sulfonamides; Z88.8 Allergy status to other drugs, medicaments and biological substances; Z79.82 Long term (current) use of aspirin; Z79.890 Hormone replacement therapy; Z79.899 Other long term (current) drug therapy; Z98.890 Other specified postprocedural states
CPT/HCPCS: 36415; 36430; 80053; 85025; 86850; 86900; 86901; 86920; 86922; 96374; 99217; 99219; A9270-GY; G0378; J1940; J7030; P9016; P9034

== ENCOUNTER 2020-12-22 05:45 | Day surgery (SDC) | payer MEDICARE ==
[~2020-12-22 05:45] MED LIST: Acetaminophen 500 MG Tab PO ONE
[2020-12-22] MEDS ORDERED: Metoprolol Tartrate 50 MG Tab PO ONE (06:13)
[2020-12-22] MEDS ORDERED: Dextrose 5%-Lactated Ringers 1,000 ML IV SCH (06:30)
[2020-12-22] MEDS ORDERED: Lidocaine 1% with EPINEPHrine 1:100,000 50 ML MDV ONE (06:39)
[2020-12-22] MEDS ORDERED: Bupivacaine 0.5% 50 ML MDV ONE (06:39)
[2020-12-22] MEDS ORDERED: Propofol 200 MG/20 ML SDV ONE (06:50)
[2020-12-22] MEDS ORDERED: fentaNYL 100 MCG/2 ML SDV ONE (06:50)
[2020-12-22] MEDS ORDERED: ceFAZolin 2 GM in Premix Bag 1 BAG IV ONE (07:00)
[2020-12-22] MEDS ORDERED: ceFAZolin 2 GM in Sodium Chloride 0.9% 50 ML IV ONE (07:00)
[2020-12-22 08:54] VITALS: BP 140/63; PULSE 77
--- NOTE | 2021-01-05 15:10 | OR ---
DATE OF PROCEDURE: 12/22/2020 SURGEON: Alex Hoff MD PREOPERATIVE DIAGNOSIS: Indications for central venous access. POSTOPERATIVE DIAGNOSIS: Indications for central venous access. PROCEDURE: Placement of Bard PowerPort via left subclavian vein approach ([id number]). ANESTHESIA: Local plus IV sedation. INDICATION FOR PROCEDURE: This is an 80-year-old presenting for port placement for ongoing chemotherapy. Plan is to proceed with port placement. Potential risks including bleeding, infection, pneumohemothorax, vascular injury, possible problems with the port becoming infected or occluded were all gone over, and the patient wishes to proceed. DETAILS OF PROCEDURE: The patient was taken to the operating room and placed in a supine position. After IV sedation was administered, the upper chest and neck areas were prepped and draped and the left subclavian area anesthetized with 1% lidocaine mixed with Marcaine. The subclavian vein was then accessed and a guidewire passed and manipulated into the superior vena cava. Some additional local was then injected and a transverse infraclavicular incision was made and carried down through the skin and subcutaneous tissue and through the pectoralis major fascia. At that plane, behind the pectoralis major fascia, a port pocket was constructed bluntly. The Bard port was then assembled and flushed with heparinized saline and cut such that the catheter tip would lie in the area of the superior vena cava and right atrial junction. The port was placed into the pocket, and over the introducer and peel-away catheter, the Bard port catheter was placed without difficulty. Good in and outflow were noted through the port. The port was flushed with heparinized saline. Incision closed with some 4-0 Vicryl stitch deep and a 4-0 Vicryl subcuticular stitch and Steri-Strips applied. There were no evident complications. The patient was taken to the recovery room in satisfactory condition. Alex Hoff MD /[id number]
== END 2020-12-22 09:47 | disposition home or self-care (01) ==
LOC: JP.SDS 05:45
PROVIDERS: ATTEND Surgery
DX: C25.9 Malignant neoplasm of pancreas, unspecified (principal); I12.9 Hypertensive chronic kidney disease with stage 1 through stage 4 chronic kidney disease, or unspecified chronic kidney disease; E11.22 Type 2 diabetes mellitus with diabetic chronic kidney disease; N18.9 Chronic kidney disease, unspecified; I25.10 Atherosclerotic heart disease of native coronary artery without angina pectoris; E03.9 Hypothyroidism, unspecified; E78.00 Pure hypercholesterolemia, unspecified; Z88.2 Allergy status to sulfonamides; Z88.8 Allergy status to other drugs, medicaments and biological substances; Z86.73 Personal history of transient ischemic attack (TIA), and cerebral infarction without residual deficits
CPT/HCPCS: 36561; A9270; C1788; J0690; J1642; J2020; J2704; J3010; J3490; J7121

== ENCOUNTER 2020-12-25 18:06 | Inpatient (IN) | payer MEDICARE ==
[2020-12-25] MEDS ORDERED: Albuterol/Ipratropium 3.0-0.5 MG/3 ML Neb Soln ONE (18:10)
[2020-12-25] MEDS ORDERED: Albuterol/Ipratropium 3.0-0.5 MG/3 ML Neb Soln NEB ONE (18:12)
--- NOTE | 2020-12-25 18:28 | EDM.PDOC ---
ED HPI GENERAL MEDICAL PROBLEM - General Chief Complaint: Respiratory Problem Stated Complaint: [facility] Time Seen by Provider: 12/25/20 18:11 Source of Information: Reports: Patient, EMS, Family - History of Present Illness INITIAL COMMENTS - FREE TEXT/NARRATIVE: Kasey is an 80-year-old female presenting to the ER via [facility] for evaluation of acute onset of dyspnea, shaking chills, and tachycardia. Patient has a history significant for stage IV pancreatic cancer and recently had chemotherapy placed on hold due to renal failure, neutropenia, and congestive heart failure. Today she was seen in the clinic at which time she received a COVID-19 vaccine. This occurred around noon today. Around 5 this evening, the patient became acutely more short of breath, tachycardic, weak, with shaking rigors. He is afebrile on arrival with a heart rate in the 120s bpm. - Related Data Allergies Allergy/AdvReac Type Severity Reaction Status Date / Time oxaprozin [Oxaprozin] Allergy Unknown Cannot Verified 12/25/20 18:26 Remember Sulfa (Sulfonamide Allergy Rash Verified 12/25/20 18:26 Antibiotics) Home Meds: Home Meds Levothyroxine Sodium [Synthroid] 75 mcg PO DAILY 06/26/14 [History] Rosuvastatin [Crestor] 40 mg PO BEDTIME 06/26/14 [History] amLODIPine Besylate [Amlodipine Besylate] 10 mg PO DAILY 06/26/14 [History] Omeprazole [Prilosec] 20 mg PO DAILY 11/25/14 [History] Acetaminophen 650 mg PO Q6HR PRN 09/05/20 [History] Cyanocobalamin (Vitamin B-12) [Vitamin B-12] 100 mcg PO DAILY 09/05/20 [History] Docusate Sodium [Colace] 100 mg PO BID PRN 09/05/20 [History] Metoprolol Tartrate [Lopressor] 50 mg PO BID 09/05/20 [History] bisacodyL [Dulcolax] 5 mg PO DAILY PRN 09/05/20 [History] Aspirin [Halfprin] 81 mg PO DAILY 12/17/20 [History] Clopidogrel [Plavix] 75 mg PO DAILY 12/17/20 [History] Furosemide [Lasix] 20 mg PO DAILY 12/17/20 [History] Hydrocodone/Acetaminophen [Hydrocodon-Acetaminophen 5-325] 1 each PO Q6HR PRN 12/17/20 [History] Prochlorperazine [Compazine] 10 mg PO Q6HR PRN 12/17/20 [History] glipiZIDE [Glucotrol] 5 mg PO DAILY 12/17/20 [History] Cholecalciferol (Vitamin D3) [Vitamin D3] 1,000 unit PO DAILY 12/25/20 [History] Past Medical History HEENT History: Reports: Impaired Vision Cardiovascular History: Reports: High Cholesterol, Hypertension Gastrointestinal History: Reports: GERD Genitourinary History: Reports: Chronic Renal Insuffiency, Renal Calculus 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: Reports: Other DIE 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: HYSTERECTOMY Musculoskeletal History: Reports: Arthritis Neurological History: Reports: CVA, Migraines Endocrine/Metabolic History: Reports: Diabetes, Type II, Hypothyroidism Hematologic History: Reports: Blood Transfusion(s) Other Hematologic History: BILAT LE DVT Immunologic History: Reports: Immunosuppression, Other (See Below) Other Immunologic History: chemo for pancreatic cancer Oncologic (Cancer) History: Reports: Pancreatic - Infectious Disease History Infectious Disease History: Reports: Chicken Pox, Measles, Mumps - Past Surgical History Other HEENT Surgeries/Procedures: PREVIOUS CVA 2001 Cardiovascular Surgical History: Reports: None GI Surgical History: Reports: Colonoscopy Female Surgical History: Reports: Hysterectomy, Salpingo-Oophorectomy Neurological Surgical History: Reports: None Musculoskeletal Surgical History: Reports: Knee Replacement Social & Family History - Family History Family Medical History: No Pertinent Family History - Caffeine Use Caffeine Use: Reports: Coffee ED ROS GENERAL - Review of Systems Review Of Systems: See Below Constitutional: Reports: Chills, Weakness, Fatigue HEENT: Reports: No Symptoms Respiratory: Reports: Shortness of Breath, Wheezing Cardiovascular: Reports: No Symptoms Endocrine: Reports: No Symptoms GI/Abdominal: Reports: No Symptoms : Reports: No Symptoms Musculoskeletal: Reports: No Symptoms Skin: Reports: No Symptoms Neurological: Reports: Tremors Psychiatric: Reports: No Symptoms Hematologic/Lymphatic: Reports: No Symptoms Immunologic: Reports: No Symptoms ED EXAM, GENERAL - Physical Exam Exam: See Below Exam Limited By: No Limitations General Appearance: Alert, Anxious, Moderate Distress Eye Exam: Bilateral Eye: EOMI, PERRL Nose: Normal Inspection Throat/Mouth: Normal Inspection Head: Atraumatic, Normocephalic Neck: Normal Inspection, Supple, Non-Tender, Full Range of Motion. No: Carotid Bruit Respiratory/Chest: Decreased Breath Sounds (Bilateral diminished sounds especially in the right base. Scant wheezes are appreciated and are predominantly expiratory.), Wheezing, Accessory Muscle Use, Retractions Cardiovascular: Normal Peripheral Pulses, Regular Rate, Rhythm, No JVD, No Murmur, Tachycardia Peripheral Pulses: 2+: Radial (L), Radial (R), Posterior Tibial (L), Posterior Tibial (R) GI/Abdominal: Normal Bowel Sounds, Soft, Non-Tender Back Exam: Normal Inspection, Full Range of Motion Extremities: Normal Range of Motion, Non-Tender, Pedal Edema (1-2+ edema bilateral lower extremities from the knee to the foot) Neurological: Alert, Oriented, Normal Cognition, No Motor/Sensory Deficits Psychiatric: Anxious Skin Exam: Warm, Dry Lymphatic: No Adenopathy #1 Interpretation EKG Date: 12/25/20 Time: 18:23 Rhythm: NSR Rate (Beats/Min): 123 [place]: Normal P-Wave: Present QRS: Normal ST-T: Other (Flattened T waves in leads II, III, aVF and V4 through V6.) QT: Normal Comparison: Change From Previous EKG (Sinus tachycardia with multiple premature ventricular and atrial beats replaces normal sinus rhythm on previous EKG 08/08/2014.) Course - Vital Signs Last Recorded V/S: Last Vital Signs Temp 36.5 C 12/25/20 18:18 Pulse 120 H 12/25/20 18:39 Resp 37 H 12/25/20 18:39 BP 169/128 H 12/25/20 18:39 Pulse Ox 93 L 12/25/20 18:39 - Orders/Labs/Meds Orders: Active Orders 24 hr Category Date Time Status EKG Documentation Completion [RC] ASDIRECTED Care 12/25/20 18:15 Active RT Aerosol Therapy [RC] ASDIRECTED Care 12/25/20 18:12 Active Chest 1V Frontal [CR] Stat Exams 12/25/20 18:12 Taken EKG 12 Lead [EK] Routine Ther 12/25/20 18:14 Ordered Labs: Laboratory Tests 12/25/20 12/25/20 Range/Units 18:35 18:35 WBC 11.8 H (4.5-11.0) K/uL RBC 3.18 L (3.30-5.50) M/uL Hgb 9.6 L (12.0-15.0) g/dL Hct 30.3 L (36.0-48.0) % MCV 95 (80-98) fL MCH 30 (27-31) pg MCHC 32 (32-36) % Plt Count 260 (150-400) K/uL Neut % (Auto) 86 H (36-66) % Lymph % (Auto) 9 L (24-44) % [place] % (Auto) 5 (2-6) % Eos % (Auto) 1 L (2-4) % Baso % (Auto) 0 (0-1) % Sodium 148 (140-148) mmol/L Potassium 4.5 (3.6-5.2) mmol/L Chloride 109 H (100-108) mmol/L Carbon Dioxide 19 L (21-32) mmol/L Anion Gap 24.5 H (5.0-14.0) mmol/L BUN 21 H (7-18) mg/dL Creatinine 2.4 H (0.6-1.0) mg/dL Est Cr Clr Drug Dosing 15.21 mL/min Estimated GFR (MDRD) 19 L (>60) Glucose 225 H (74-106) mg/dL Calcium 8.7 (8.5-10.1) mg/dL Total Bilirubin 0.4 (0.2-1.0) mg/dL AST 42 H (15-37) U/L ALT 15 (12-78) U/L Alkaline Phosphatase 176 H (46-116) U/L Troponin I 0.020 (0.000-0.056) ng/mL NT-Pro-B Natriuret Pep 42300 H (5-450) pg/mL Total Protein 6.4 (6.4-8.2) g/dL Albumin 2.7 L (3.4-5.0) g/dL Globulin 3.7 H (2.3-3.5) g/dL Albumin/Globulin Ratio 0.7 L (1.2-2.2) Meds: Medications Discontinued Medications Generic Name Dose Route Start Last Admin Trade Name Freq PRN Reason Stop Dose Admin Albuterol/Ipratropium 3 ml 12/25/20 18:12 12/25/20 18:32 Albuterol/Ipratropium 3.0-0.5 Mg/3 Ml Neb Soln NEB 12/25/20 18:13 3 ml ONETIME ONE Administration Furosemide 40 mg 12/25/20 19:20 Furosemide 40 Mg/4 Ml Vial IVPUSH 12/25/20 19:21 ONETIME ONE Ondansetron HCl 4 mg 12/25/20 19:19 Ondansetron 4 Mg/2 Ml Sdv IVPUSH 12/25/20 19:20 ONETIME ONE - Radiology Interpretation Free Text/Narrative:: Large right pleural effusion. Normal cardiac silhouette. No significant infiltrates. - Re-Assessments/Exams Free Text/Narrative Re-Assessment/Exam: 12/25/20 19:30 I reviewed the patient's chest x-ray showing a newly developed right pleural effusion. There is no sign for any infiltrates. I reviewed the patient's labs showing a slight leukocytosis at 11.8 which is not unusual after receiving the COVID-19 vaccine today. What is surprising as her creatinine is risen to 2.4 and her pro B type natruretic peptide is 16,628 fine significant el evation. This in combination with her acute dyspnea, peripheral edema, and tachycardia are suggestive of significant congestive heart failure. The patient did improve after getting the DuoNeb, however, she is still tachypneic and tachycardic and will likely need admission for diuresis. The patient was initiated with Lasix 40 mg IV push. We will have to watch kidney function. The patient is DNR/DNI. I discussed the case with Dr. Obrien who will arrange for admission of the patient. 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 Congestive heart failure (CHF) Qualifiers: Heart failure type: unspecified Heart failure chronicity: acute on chronic Qualified Code(s): I50.9 - Heart failure, unspecified - Discharge Information Referrals: Ash Cox MD [Primary Care Provider] - Forms: ED Department Discharge Sepsis Event Note (ED) - Focused Exam Vital Signs: Vital Signs Temp Pulse Resp BP Pulse Ox 12/25/20 18:39 120 H 37 H 169/128 H 93 L 12/25/20 18:18 36.5 C 133 H 42 H 166/72 H 94 L - Problem List & Annotations (1) Pancreatic carcinoma SNOMED Code(s): 929446044 Code(s): C25.9 - MALIGNANT NEOPLASM OF PANCREAS, UNSPECIFIED Status: Acute Priority: High Current Visit: No (2) Acute dyspnea SNOMED Code(s): 032156484, 810982690 Code(s): R06.00 - DYSPNEA, UNSPECIFIED Status: Acute Priority: High Current Visit: Yes (3) Chronic renal failure, stage 3a SNOMED Code(s): 701488365, 573019935 Code(s): N18.31 - CHRONIC KIDNEY DISEASE, STAGE 3A Status: Chronic Priority: High Current Visit: Yes (4) Congestive heart failure (CHF) SNOMED Code(s): 95794594 Code(s): I50.9 - HEART FAILURE, UNSPECIFIED Status: Acute Priority: High Current Visit: Yes Qualifiers: Heart failure type: unspecified Heart failure chronicity: acute on chronic Qualified Code(s): I50.9 - Heart failure, unspecified - Problem List Review Problem List Initiated/Reviewed/Updated: Yes - My Orders Last 24 Hours: My Active Orders 12/25/20 18:12 RT Aerosol Therapy [RC] ASDIRECTED Chest 1V Frontal [CR] Stat 12/25/20 18:14 EKG 12 Lead [EK] Routine 12/25/20 18:15 EKG Documentation Completion [RC] ASDIRECTED - Assessment/Plan Last 24 Hours: My Active Orders 12/25/20 18:12 RT Aerosol Therapy [RC] ASDIRECTED Chest 1V Frontal [CR] Stat 12/25/20 18:14 EKG 12 Lead [EK] Routine 12/25/20 18:15 EKG Documentation Completion [RC] ASDIRECTED
[2020-12-25] MEDS ORDERED: Ondansetron 4 MG/2 ML SDV IVPUSH ONE (19:19)
[2020-12-25] MEDS ORDERED: Furosemide 40 MG/4 ML VIAL IVPUSH ONE (19:20)
--- NOTE | 2020-12-25 20:17 | PCM.HP.2 ---
H&P History of Present Illness - General Date of Service: 12/25/20 Source of Information: Patient, Family, Old Records, Provider, RN Notes Reviewed History Limitations: Reports: No Limitations - History of Present Illness Initial Comments - Free Text/Narative: Ms. Kerr is an 80-year-old woman who was admitted through the emergency department with increased shortness of breath and hypoxia secondary to probable pneumonia and underlying stage IV metastatic pancreatic carcinoma and chronic kidney disease. She was hospitalized here about 2 weeks ago with pancytopenia secondary to recent chemotherapy and bone marrow suppression. She was transfused 2 units of red blood cells and 1 unit of platelets. Since then chemotherapy has been held because of bone marrow suppression and worsening renal function. She has not felt well with very poor appetite, nausea, and progressive shortness of breath. During this period of time she has become progressively more weak and fatigues very easily. Shortness of breath is progressed to the point that she could becomes very short of breath with minimal exertion. On evaluation in the emergency department she is noted to have fever with temperature elevation of 101.7 degrees. White blood cell count is mildly elevated and chest x-ray shows evidence of infiltrate versus fluid right lung base. She has received a dose of furosemide 40 mg IV while in the emergency department. Would like to be treated for current problem but also like to Start palliative care for symptomatic management of her pain, nausea, and dyspnea. - Related Data Allergies/Adverse Reactions: Allergies Allergy/AdvReac Type Severity Reaction Status Date / Time oxaprozin [Oxaprozin] Allergy Unknown Cannot Verified 12/25/20 18:26 Remember Sulfa (Sulfonamide Allergy Rash Verified 12/25/20 18:26 Antibiotics) Home Medications: Home Meds Levothyroxine Sodium [Synthroid] 75 mcg PO DAILY 06/26/14 [History] Rosuvastatin [Crestor] 40 mg PO BEDTIME 06/26/14 [History] amLODIPine Besylate [Amlodipine Besylate] 10 mg PO DAILY 06/26/14 [History] Omeprazole [Prilosec] 20 mg PO DAILY 11/25/14 [History] Acetaminophen 650 mg PO Q6HR PRN 09/05/20 [History] Cyanocobalamin (Vitamin B-12) [Vitamin B-12] 100 mcg PO DAILY 09/05/20 [History] Docusate Sodium [Colace] 100 mg PO BID PRN 09/05/20 [History] Metoprolol Tartrate [Lopressor] 50 mg PO BID 09/05/20 [History] bisacodyL [Dulcolax] 5 mg PO DAILY PRN 09/05/20 [History] Aspirin [Halfprin] 81 mg PO DAILY 12/17/20 [History] Clopidogrel [Plavix] 75 mg PO DAILY 12/17/20 [History] Furosemide [Lasix] 20 mg PO DAILY 12/17/20 [History] Hydrocodone/Acetaminophen [Hydrocodon-Acetaminophen 5-325] 1 each PO Q6HR PRN 12/17/20 [History] Prochlorperazine [Compazine] 10 mg PO Q6HR PRN 12/17/20 [History] glipiZIDE [Glucotrol] 5 mg PO DAILY 12/17/20 [History] Cholecalciferol (Vitamin D3) [Vitamin D3] 1,000 unit PO DAILY 12/25/20 [History] Past Medical History HEENT History: Reports: Impaired Vision Cardiovascular History: Reports: Heart Failure, High Cholesterol, Hypertension Gastrointestinal History: Reports: GERD Genitourinary History: Reports: Chronic Renal Insuffiency, Renal Calculus 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/BYN History: HYSTERECTOMY Musculoskeletal History: Reports: Arthritis Neurological History: Reports: CVA, Migraines Endocrine/Metabolic History: Reports: Diabetes, Type II, Hypothyroidism Hematologic History: Reports: Blood Transfusion(s) Other Hematologic History: BILAT LE DVT Immunologic History: Reports: Immunosuppression, Other (See Below) Other Immunologic History: chemo for pancreatic cancer Oncologic (Cancer) History: Reports: Pancreatic - Infectious Disease History Infectious Disease History: Reports: Chicken Pox, Measles, Mumps - Past Surgical History Other HEENT Surgeries/Procedures: PREVIOUS CVA 2001 Cardiovascular Surgical History: Reports: None GI Surgical History: Reports: Colonoscopy Female Surgical History: Reports: Hysterectomy, Salpingo-Oophorectomy Neurological Surgical History: Reports: None Musculoskeletal Surgical History: Reports: Knee Replacement Social & Family History - Family History Family Medical History: No Pertinent Family History - Tobacco Use Tobacco Use Status *Q: Former Tobacco User Used Tobacco, but Quit: Yes Month/Year Tobacco Last Used: 20 years - Caffeine Use Caffeine Use: Reports: Coffee - Recreational Drug Use Recreational Drug Use: No H&P Review of Systems - Review of Systems: Review Of Systems: See Below General: Reports: Fever, Malaise, Weakness, Fatigue, Decreased Appetite. Denies : Chills HEENT: Reports: No Symptoms Pulmonary: Reports: Shortness of Breath, Cough. Denies: Wheezing, Pleuritic Chest Pain, Sputum, Hemoptysis Cardiovascular: Reports: Dyspnea on Exertion, Edema. Denies: Chest Pain, Palpit ations, Orthopnea, PND, Lightheadedness Gastrointestinal: Reports: Decreased Appetite, Nausea, Vomiting. Denies: Constipation, Diarrhea, Difficulty Swallowing, Distension, Hematemesis, Hematochezia, Melena Genitourinary: Reports: No Symptoms Musculoskeletal: Reports: No Symptoms Skin: Reports: No Symptoms Psychiatric: Reports: No Symptoms Neurological: Reports: No Symptoms Hematologic/Lymphatic: Reports: No Symptoms Immunologic: Reports: No Symptoms Exam - Exam Exam: See Below - Vital Signs Vital Signs: Last Vital Signs Temp 101.7 F H 12/25/20 19:36 Pulse 105 H 12/25/20 19:36 Resp 34 H 12/25/20 19:36 BP 151/67 H 12/25/20 19:36 Pulse Ox 92 L 12/25/20 19:36 Weight: 140 lb - Exam Quality Assessment: Supplemental Oxygen, DVT Prophylaxis General: Alert, Oriented, Cooperative, Moderate Distress HEENT: Conjunctiva Clear, Hearing Intact, Normal Nasal Septum, Posterior Pharynx Clear, Pupils Equal. No: Mucosa Moist & [place] Neck: Supple, Trachea Midline, +2 Carotid Pulse wo Bruit Lungs: Normal Respiratory Effort, Decreased Breath Sounds, Rales, Rhonchi. No: Wheezing Cardiovascular: Regular Rhythm, Normal S1, Normal S2, Tachycardia. No: Systolic Murmur, Diastolic Murmur GI/Abdominal Exam: Soft, Non-Tender, No Organomegaly, No Distention Back Exam: Normal Inspection, Full Range of Motion Extremities: Non-Tender, Pedal Edema Skin: Warm, Dry, Intact Neurological: Cranial Nerves Intact, Strength Equal Bilateral, Normal Speech, Normal Tone, Sensation Intact. No: Focal Deficit Neuro Extensive - Mental Status: Alert, Oriented x3, Normal Mood/Affect, Normal Cognition, Memory Intact - Patient Data Lab Results Last 24 hrs: Laboratory Results - last 24 hr 12/25/20 12/25/20 Range/Units 18:35 18:35 WBC 11.8 H (4.5-11.0) K/uL RBC 3.18 L (3.30-5.50) M/uL Hgb 9.6 L (12.0-15.0) g/dL Hct 30.3 L (36.0-48.0) % MCV 95 (80-98) fL MCH 30 (27-31) pg MCHC 32 (32-36) % Plt Count 260 (150-400) K/uL Neut % (Auto) 86 H (36-66) % Lymph % (Auto) 9 L (24-44) % [place] % (Auto) 5 (2-6) % Eos % (Auto) 1 L (2-4) % Baso % (Auto) 0 (0-1) % Sodium 148 (140-148) mmol/L Potassium 4.5 (3.6-5.2) mmol/L Chloride 109 H (100-108) mmol/L Carbon Dioxide 19 L (21-32) mmol/L Anion Gap 24.5 H (5.0-14.0) mmol/L BUN 21 H (7-18) mg/dL Creatinine 2.4 H (0.6-1.0) mg/dL Est Cr Clr Drug Dosing 15.21 mL/min Estimated GFR (MDRD) 19 L (>60) Glucose 225 H (74-106) mg/dL Calcium 8.7 (8.5-10.1) mg/dL Total Bilirubin 0.4 (0.2-1.0) mg/dL AST 42 H (15-37) U/L ALT 15 (12-78) U/L Alkaline Phosphatase 176 H (46-116) U/L Troponin I 0.020 (0.000-0.056) ng/mL NT-Pro-B Natriuret Pep 84989 H (5-450) pg/mL Total Protein 6.4 (6.4-8.2) g/dL Albumin 2.7 L (3.4-5.0) g/dL Globulin 3.7 H (2.3-3.5) g/dL Albumin/Globulin Ratio 0.7 L (1.2-2.2) Result Diagrams: 12/25/20 18:35 12/25/20 18:35 Sepsis Event Note - Evaluation Sepsis Screening Result: No Definite Risk - Focused Exam Vital Signs: Vital Signs Temp Pulse Resp BP Pulse Ox 12/25/20 19:36 101.7 F H 105 H 34 H 151/67 H 92 L 12/25/20 18:39 120 H 37 H 169/128 H 93 L 12/25/20 18:18 97.7 F 133 H 42 H 166/72 H 94 L *Q Meaningful Use (ADM) - VTE Risk Assess *Q Each Risk Factor Represents 1 Point: Swollen Legs, Current, Serious lung disease including pneumonia Total Score 1 Point Risk Factors: 2 Each Risk Factor Represents 2 Points: Malignancy (present or previous) Total Score 2 Point Risk Factors: 2 Each Risk Factor Represents 3 Points: Age 75 Years or Greater Total Score 3 Point Risk Factors: 3 Each Risk Factor Represents 5 Points: None Total Score 5 Point Risk Factors: 0 Venous Thromboembolism Risk Factor Score *Q: 7 Problem List Initiated/Reviewed/Updated: Yes Orders Last 24hrs: Active Orders 24 hr Category Date Time Status EKG Documentation Completion [RC] ASDIRECTED Care 12/25/20 18:15 Active RT Aerosol Therapy [RC] ASDIRECTED Care 12/25/20 18:12 Active Chest 1V Frontal [CR] Stat Exams 12/25/20 18:12 Taken BLOOD GAS ARTERIAL [BG] Stat Lab 12/25/20 20:15 Ordered CULTURE BLOOD [BC] Stat Lab 12/25/20 20:14 Ordered CULTURE BLOOD [BC] Stat Lab 12/25/20 20:14 Ordered LACTIC ACID [CHEM] Stat Lab 12/25/20 20:14 Ordered PROCALCITONIN [CHEM] Stat Lab 12/25/20 20:14 Ordered UA W/MICROSCOPIC [URIN] Stat Lab 12/25/20 19:41 Ordered Blood Culture x2 Reflex Set [OM.PC] Urgent Oth 12/25/20 20:14 Ordered EKG 12 Lead [EK] Routine Ther 12/25/20 18:14 Ordered Assessment/Plan Comment:: ASSESSMENT AND PLAN HYPOXIC RESPIRATORY FAILURE-very short of breath with minimal exertion and noted to have hypoxia on initial presentation. She currently is on 4 L of oxygen per minute via nasal cannula with adequate oxygenation. White blood cell count is elevated and she was noted to have fever in the emergency department. Chest x- ray shows possible infiltrate versus fluid right lung base. Pulmonary emboli would also be in the current differential, unable to evaluate with CT scan and contrast because of renal insufficiency. -CT scan of chest without contrast -Lactic acid, procalcitonin pending -Blood cultures pending -Empiric IV antibiotic therapy with ceftriaxone and doxycycline, pending culture results and further evaluation -Nebulized albuterol -Echocardiogram when available -Supplemental oxygen as needed STAGE IV PANCREATIC CARCINOMA-she had been receiving palliative chemotherapy. Chemotherapy currently on hold because of bone marrow suppression and pr ogressive renal insufficiency. CHRONIC KIDNEY DISEASE STAGE IIIb-creatinine has increased now to 2.4. Possibly secondary to dehydration and intravascular volume depletion, as well as recent chemotherapy -Closely monitor urine output and renal function -Reassess labs in a.m. PALLIATIVE CARE-she would like to start management for comfort, in addition to current interventions -Morphine 2.5 mg every hour as needed for pain and/or dyspnea -Lorazepam 0.25 mg every 2 hours as needed for nausea and/or anxiety MAINTENANCE ISSUES -DVT prophylaxis; Lovenox 30 mg subcu daily -GI prophylaxis; continue outpatient PPI therapy -[place] catheter; not indicated -Nutrition; regular diet -Nicotine dependence; not required CODE STATUS-DNR/DNI ADMISSION STATUS-this patient will be admitted to observation status, expect no more than a one night hospital stay for evaluation and management of problems as outlined above. DISPOSITION-anticipate discharge to home after the hospital stay. PRIMARY CARE PROVIDER-Dr. Cox - Mortality Measure Prognosis:: Poor
[2020-12-25] MEDS ORDERED: Ondansetron 4 MG/2 ML SDV IV PRN (21:50)
[2020-12-25] MEDS ORDERED: Docusate Sodium 100 MG Cap PO PRN (21:50)
[2020-12-25] MEDS ORDERED: Bisacodyl 5 MG Tab PO PRN (21:50)
[2020-12-25] MEDS ORDERED: Sodium Chloride 0.9% 10 ML Syringe FLUSH PRN (21:50)
[2020-12-25] MEDS ORDERED: Polyethylene Glycol 3350 Powder 17 GM Packet PO PRN (21:50)
[2020-12-25] MEDS ORDERED: Morphine 10 MG/0.5 ML Oral Syringe PO PRN (21:50)
--- NOTE | 2020-12-25 23:03 | CRLCT ---
INDICATION: Hypoxia. COMPARISON: CT of the chest from 11/17/2020 TECHNIQUE: CT examination of the chest was performed without contrast enhancement. 3 mm thick axial sections were obtained from above the apices of the lungs to the lung bases. Please note that all CT scans at this facility use dose modulation, iterative reconstruction, and/or weight-based dosing when appropriate to reduce radiation dose to as low as reasonably achievable. FINDINGS: The previously seen pleural effusions have increased in size. They are now moderate in size, remaining larger on the right than the left. There is new mild dependant atelectasis in the posterior lower lungs adjacent to the effusions. The lungs are otherwise clear. The previously seen curvilinear density in the superior portion of the right major fissure is no longer evident, but there is significant motion in this region of the scan, so in small area of density could be missed. During the interval, a left subclavian infusion port has been placed with its tip in the superior vena cava at the cavoatrial junction. There is no sign of mediastinal or hilar mass or adenopathy. Sensitivity is limited by lack of contrast enhancement. Again seen is heavy calcification of the aortic valve annulus. There is stable moderate triple-vessel coronary calcification. There is a new mild pericardial effusion. There is no sign of aneurysmal dilatation of the thoracic aorta. There is heavy calcification of the aortic arch and descending thoracic aorta. The ascending great vessels show heavy calcification but are otherwise normal in appearance. There is no sign of supraclavicular or axillary mass or adenopathy. There is new mild ascites. The visualized superior liver has a 1.5 centimeter probable cyst in the dome of the posterior segments of the right lobe, segment 7. A 1.5 centimeter low-density region is seen in the anterior subcapsular anterior segment of the right lobe in between segments 5 and 8. There is no change in the 1.3 centimeter in diameter low-density region in the medial subcapsular posterior inferior right lower lobe, segment 6. There continues to be mild nodularity of the surface of the liver, suggesting cirrhosis. The visualized superior spleen, pancreas, kidneys, and adrenals are normal in appearance. The osseous structures are normal in appearance for the patient`s age. IMPRESSION: Increased pleural effusions bilaterally, now moderate, remaining larger on the right than the left. New mild dependant atelectasis in the posterior lung bases adjacent to the effusions, right greater than left. New mild pericardial effusion. New mild ascites. The liver continues to have slight nodularity of its margins suggesting cirrhosis. Stable appearance of multiple low-density regions in the liver consistent with cysts. Please note that all CT scans at this facility use dose modulation, iterative reconstruction, and/or weight-based dosing when appropriate to reduce radiation dose to as low as reasonably achievable. Dictated by Zac Sanchez MD @ Dec 25 2020 10:47PM Signed by Dr. Zac Sanchez @ Dec 25 2020 11:00PM
[2020-12-25] MEDS: LORazepam ORAL Concentrate 1MG/0.5ML U/D PO PRN (23:27)
[2020-12-25] MEDS: cefTRIAXone 1 GM in Sodium Chloride 0.9% 50 ML IV SCH (23:28)
[2020-12-25] MEDS: Enoxaparin 30 MG/0.3 ML Syringe SUBCUT SCH (23:29)
[2020-12-25] MEDS: Doxycycline 100 MG in Sodium Chloride 0.9% 100 ML IV SCH (23:31)
[2020-12-26] MEDS: Acetaminophen 325 MG Tab PO PRN (05:09)
[2020-12-26] MEDS: Albuterol 0.083% 2.5 MG/3 ML Neb Soln NEB PRN ×3 (05:15→20:30)
[2020-12-26] MEDS: Pantoprazole 40 MG Tab.CR PO SCH (08:10)
[2020-12-26] MEDS: Levothyroxine 25 MCG Tab PO SCH (08:11)
[2020-12-26] MEDS ORDERED: Furosemide 20 MG/2 ML VIAL IVPUSH ONE (08:30)
[2020-12-26] MEDS: Aspirin 81 MG Tab.EC PO SCH (08:45)
[2020-12-26] MEDS: Metoprolol Tartrate 50 MG Tab PO SCH ×2 (08:45→20:28)
[2020-12-26] MEDS: Clopidogrel 75 MG Tab PO SCH (08:45)
--- NOTE | 2020-12-26 09:01 | CR ---
CHEST: Portable 12/25/2020 at 6:25 PM CLINICAL HISTORY:Dyspnea COMPARISON:CT 11/17/2020 FINDINGS: Patient has a small to moderate right pleural effusion. Heart size pulmonary vascular normal. There is an [id number] catheter from the left subclavian approach. Tip is in the superior vena cava. There is some patchy airspace disease in both lower lobes right greater than left. IMPRESSION: [id number]-[id number] right pleural effusion Patchy bibasal airspace disease may be some compressive atelectasis Left subclavian [id number]-n-Eyzs catheter
--- NOTE | 2020-12-26 10:51 | PCM.PN ---
- General Info Date of Service: 12/26/20 Subjective Update: Ms. Kerr is felt improved since admission with less shortness of breath. She has had no significant temperature elevation and vital signs have stabilized. Respiratory rate is decreased and heart rate has come down as well. Functional Status: Reports: Tolerating Diet, Ambulating, Urinating - Review of Systems General: Reports: Weakness, Fatigue. Denies: Fever, Chills Pulmonary: Reports: Shortness of Breath. Denies: Pleuritic Chest Pain, Cough, Sputum, Hemoptysis, Wheezing Cardiovascular: Reports: Dyspnea on Exertion. Denies: Chest Pain, Palpitations, Orthopnea, PND, Edema, Lightheadedness Gastrointestinal: Reports: No Symptoms - Patient Data Vitals - Most Recent: Last Vital Signs Temp 98.1 F 12/26/20 08:00 Pulse 88 12/26/20 08:45 Resp 29 H 12/26/20 08:00 BP 125/53 L 12/26/20 08:45 Pulse Ox 92 L 12/26/20 08:00 Weight - Most Recent: 146 lb 12.8 oz I&O - Last 24 Hours: Intake & Output 12/25/20 12/26/20 12/26/20 22:59 06:59 14:59 Intake Total 360 Output Total 300 Balance -300 360 Lab Results Last 24 Hours: Laboratory Results - last 24 hr 12/25/20 12/25/20 12/25/20 Range/Units 18:35 18:35 19:41 WBC 11.8 H (4.5-11.0) K/uL RBC 3.18 L (3.30-5.50) M/uL Hgb 9.6 L (12.0-15.0) g/dL Hct 30.3 L (36.0-48.0) % MCV 95 (80-98) fL MCH 30 (27-31) pg MCHC 32 (32-36) % Plt Count 260 (150-400) K/uL Neut % (Auto) 86 H (36-66) % Lymph % (Auto) 9 L (24-44) % [place] % (Auto) 5 (2-6) % Eos % (Auto) 1 L (2-4) % Baso % (Auto) 0 (0-1) % Puncture Site ABG pH (7.350-7.450) ABG pCO2 (35.0-42.0) mmHg ABG pO2 (75.0-100.0) mmHg ABG HCO3 (22.0-26.0) mmol/L ABG Total CO2 (21.0-25.0) mmol/L ABG O2 Saturation (95.0-98.0) % ABG O2 Content (15.0-23.0) %vol ABG Base Excess mm/L ABG Hemoglobin (12.0-16.0) g/dL ABG Oxyhemoglobin % ABG Carboxyhemoglobin (0.0-1.6) % ABG Methemoglobin % Eric Test O2 Delivery Device Oxygen Flow Rate L Sodium 148 (140-148) mmol/L Potassium 4.5 (3.6-5.2) mmol/L Chloride 109 H (100-108) mmol/L Carbon Dioxide 19 L (21-32) mmol/L Anion Gap 24.5 H (5.0-14.0) mmol/L BUN 21 H (7-18) mg/dL Creatinine 2.4 H (0.6-1.0) mg/dL Est Cr Clr Drug Dosing 15.21 mL/min Estimated GFR (MDRD) 19 L (>60) Glucose 225 H (74-106) mg/dL Lactic Acid (0.4-2.0) mmol/L Calcium 8.7 (8.5-10.1) mg/dL Magnesium (1.8-2.4) mg/dL Total Bilirubin 0.4 (0.2-1.0) mg/dL AST 42 H (15-37) U/L ALT 15 (12-78) U/L Alkaline Phosphatase 176 H (46-116) U/L Troponin I 0.020 (0.000-0.056) ng/mL NT-Pro-B Natriuret Pep 99946 H (5-450) pg/mL Total Protein 6.4 (6.4-8.2) g/dL Albumin 2.7 L (3.4-5.0) g/dL Globulin 3.7 H (2.3-3.5) g/dL Albumin/Globulin Ratio 0.7 L (1.2-2.2) Procalcitonin ng/mL Urine Color Yellow (YELLOW) Urine Appearance Cloudy A (CLEAR) Urine pH 6.0 (5.0-8.0) Ur Specific [place] >= 1.030 (1.008-1.030) Urine Protein 100 H (NEGATIVE) mg/dL Urine Glucose (UA) Negative (NEGATIVE) mg/dL Urine Ketones Negative (NEGATIVE) mg/dL Urine Occult Blood Moderate H (NEGATIVE) Urine Nitrite Negative (NEGATIVE) Urine Bilirubin Negative (NEGATIVE) Urine Urobilinogen 0.2 (0.2-1.0) EU/dL Ur Leukocyte Esterase Negative (NEGATIVE) Urine RBC 0-5 (0-5) Urine WBC 0-5 (0-5) Ur Epithelial Cells Few Amorphous Sediment Few Urine Bacteria Many Urine Mucus Not seen 12/25/20 12/25/20 12/25/20 Range/Units 20:15 20:34 20:34 WBC (4.5-11.0) K/uL RBC (3.30-5.50) M/uL Hgb (12.0-15.0) g/dL Hct (36.0-48.0) % MCV (80-98) fL MCH (27-31) pg MCHC (32-36) % Plt Count (150-400) K/uL Neut % (Auto) (36-66) % Lymph % (Auto) (24-44) % [place] % (Auto) (2-6) % Eos % (Auto) (2-4) % Baso % (Auto) (0-1) % Puncture Site Lt.radial ABG pH 7.408 (7.350-7.450) ABG pCO2 29.8 L (35.0-42.0) mmHg ABG pO2 63.7 L (75.0-100.0) mmHg ABG HCO3 18.4 L (22.0-26.0) mmol/L ABG Total CO2 17.3 L (21.0-25.0) mmol/L ABG O2 Saturation 92.1 L (95.0-98.0) % ABG O2 Content 11.6 L (15.0-23.0) %vol ABG Base Excess -5.0 mm/L ABG Hemoglobin 9.1 L (12.0-16.0) g/dL ABG Oxyhemoglobin 90.1 % ABG Carboxyhemoglobin 1.0 (0.0-1.6) % ABG Methemoglobin 1.2 % Eric Test Passed O2 Delivery Device Nasal cannula Oxygen Flow Rate 4.0 L Sodium (140-148) mmol/L Potassium (3.6-5.2) mmol/L Chloride (100-108) mmol/L Carbon Dioxide (21-32) mmol/L Anion Gap (5.0-14.0) mmol/L BUN (7-18) mg/dL Creatinine (0.6-1.0) mg/dL Est Cr Clr Drug Dosing mL/min Estimated GFR (MDRD) (>60) Glucose (74-106) mg/dL Lactic Acid 3.3 H (0.4-2.0) mmol/L Calcium (8.5-10.1) mg/dL Magnesium (1.8-2.4) mg/dL Total Bilirubin (0.2-1.0) mg/dL AST (15-37) U/L ALT (12-78) U/L Alkaline Phosphatase (46-116) U/L Troponin I (0.000-0.056) ng/mL NT-Pro-B Natriuret Pep (5-450) pg/mL Total Protein (6.4-8.2) g/dL Albumin (3.4-5.0) g/dL Globulin (2.3-3.5) g/dL Albumin/Globulin Ratio (1.2-2.2) Procalcitonin 2.00 ng/mL Urine Color (YELLOW) Urine Appearance (CLEAR) Urine pH (5.0-8.0) Ur Specific [place] (1.008-1.030) Urine Protein (NEGATIVE) mg/dL Urine Glucose (UA) (NEGATIVE) mg/dL Urine Ketones (NEGATIVE) mg/dL Urine Occult Blood (NEGATIVE) Urine Nitrite (NEGATIVE) Urine Bilirubin (NEGATIVE) Urine Urobilinogen (0.2-1.0) EU/dL Ur Leukocyte Esterase (NEGATIVE) Urine RBC (0-5) Urine WBC (0-5) Ur Epithelial Cells Amorphous Sediment Urine Bacteria Urine Mucus 12/26/20 12/26/20 12/26/20 Range/Units 05:12 05:12 08:29 WBC 13.5 H (4.5-11.0) K/uL RBC 2.60 L (3.30-5.50) M/uL Hgb 7.9 L (12.0-15.0) g/dL Hct 24.9 L (36.0-48.0) % MCV 96 (80-98) fL MCH 30 (27-31) pg MCHC 32 (32-36) % Plt Count 173 (150-400) K/uL Neut % (Auto) 85 H (36-66) % Lymph % (Auto) 3 L (24-44) % [place] % (Auto) 12 H (2-6) % Eos % (Auto) 0 L (2-4) % Baso % (Auto) 0 (0-1) % Puncture Site ABG pH (7.350-7.450) ABG pCO2 (35.0-42.0) mmHg ABG pO2 (75.0-100.0) mmHg ABG HCO3 (22.0-26.0) mmol/L ABG Total CO2 (21.0-25.0) mmol/L ABG O2 Saturation (95.0-98.0) % ABG O2 Content (15.0-23.0) %vol ABG Base Excess mm/L ABG Hemoglobin (12.0-16.0) g/dL ABG Oxyhemoglobin % ABG Carboxyhemoglobin (0.0-1.6) % ABG Methemoglobin % Eric Test O2 Delivery Device Oxygen Flow Rate L Sodium 147 (140-148) mmol/L Potassium 4.3 (3.6-5.2) mmol/L Chloride 110 H (100-108) mmol/L Carbon Dioxide 21 (21-32) mmol/L Anion Gap 20.3 H (5.0-14.0) mmol/L BUN 21 H (7-18) mg/dL Creatinine 2.4 H (0.6-1.0) mg/dL Est Cr Clr Drug Dosing 15.21 mL/min Estimated GFR (MDRD) 19 L (>60) Glucose 172 H (74-106) mg/dL Lactic Acid 2.2 H (0.4-2.0) mmol/L Calcium 8.6 (8.5-10.1) mg/dL Magnesium 1.8 (1.8-2.4) mg/dL Total Bilirubin (0.2-1.0) mg/dL AST (15-37) U/L ALT (12-78) U/L Alkaline Phosphatase (46-116) U/L Troponin I (0.000-0.056) ng/mL NT-Pro-B Natriuret Pep (5-450) pg/mL Total Protein (6.4-8.2) g/dL Albumin (3.4-5.0) g/dL Globulin (2.3-3.5) g/dL Albumin/Globulin Ratio (1.2-2.2) Procalcitonin ng/mL Urine Color (YELLOW) Urine Appearance (CLEAR) Urine pH (5.0-8.0) Ur Specific [place] (1.008-1.030) Urine Protein (NEGATIVE) mg/dL Urine Glucose (UA) (NEGATIVE) mg/dL Urine Ketones (NEGATIVE) mg/dL Urine Occult Blood (NEGATIVE) Urine Nitrite (NEGATIVE) Urine Bilirubin (NEGATIVE) Urine Urobilinogen (0.2-1.0) EU/dL Ur Leukocyte Esterase (NEGATIVE) Urine RBC (0-5) Urine WBC (0-5) Ur Epithelial Cells Amorphous Sediment Urine Bacteria Urine Mucus Med Orders - Current: Current Medications Acetaminophen (Acetaminophen 325 Mg Tab) 650 mg PO Q4H PRN PRN Reason: Pain (Mild 1-3)/fever Last Admin: 12/26/20 05:09 Dose: 650 mg Documented by: Albuterol (Albuterol 0.083% 2.5 Mg/3 Ml Neb Soln) 2.5 mg NEB Q4H PRN PRN Reason: Shortness Of Breath/wheezing Last Admin: 12/26/20 08:34 Dose: 2.5 mg Documented by: Aspirin (Aspirin 81 Mg Tab.Ec) 81 mg PO DAILY [facility] Last Admin: 12/26/20 08:45 Dose: 81 mg Documented by: Bisacodyl (Bisacodyl 5 Mg Tab) 5 mg PO DAILY PRN PRN Reason: Constipation Clopidogrel Bisulfate (Clopidogrel 75 Mg Tab) 75 mg PO DAILY [facility] Last Admin: 12/26/20 08:45 Dose: 75 mg Documented by: Docusate Sodium (Docusate Sodium 100 Mg Cap) 100 mg PO BID PRN PRN Reason: Constipation Enoxaparin Sodium (Enoxaparin 30 Mg/0.3 Ml Syringe) 30 mg SUBCUT BEDTIME [facility] Last Admin: 12/25/20 23:29 Dose: 30 mg Documented by: Ceftriaxone Sodium 1 gm/ (Sodium Chloride) 50 mls @ 100 mls/hr IV Q24H [facility] Last Admin: 12/25/20 23:28 Dose: 100 mls/hr Documented by: Doxycycline Hyclate 100 mg/ (Sodium Chloride) 100 mls @ 100 mls/hr IV Q12H [facility] Last Admin: 12/25/20 23:31 Dose: 100 mls/hr Documented by: Levothyroxine Sodium (Levothyroxine 25 Mcg Tab) 75 mcg PO ACBREAKFAST [facility] Last Admin: 12/26/20 08:11 Dose: 75 mcg Documented by: Lorazepam (Lorazepam Oral Concentrate 1mg/0.5ml U/D) 0.25 mg PO Q2H PRN PRN Reason: Nausea Last Admin: 12/25/20 23:27 Dose: 0.25 mg Documented by: Metoprolol Tartrate (Metoprolol Tartrate 50 Mg Tab) 50 mg PO BID [facility] Last Admin: 12/26/20 08:45 Dose: 50 mg Documented by: Morphine Sulfate (Morphine 10 Mg/0.5 Ml Oral Syringe) 2.5 mg PO Q1H PRN PRN Reason: Dyspnea Ondansetron HCl (Ondansetron 4 Mg/2 Ml Sdv) 4 mg IV Q4H PRN PRN Reason: Nausea/Vomiting Pantoprazole Sodium (Pantoprazole 40 Mg Tab.Cr) 40 mg PO ACBREAKFAST [facility] Last Admin: 12/26/20 08:10 Dose: 40 mg Documented by: Polyethylene Glycol (Polyethylene Glycol 3350 Powder 17 Gm Packet) 17 gm PO DAILY PRN PRN Reason: Constipation Sodium Chloride (Sodium Chloride 0.9% 10 Ml Syringe) 10 ml FLUSH ASDIRECTED PRN PRN Reason: Keep Vein Open Discontinued Medications Albuterol/Ipratropium (Albuterol/Ipratropium 3.0-0.5 Mg/3 Ml Neb Soln) 3 ml NEB ONETIME ONE Stop: 12/25/20 18:13 Last Admin: 12/25/20 18:32 Dose: 3 ml Documented by: Furosemide (Furosemide 40 Mg/4 Ml Vial) 40 mg IVPUSH ONETIME ONE Stop: 12/25/20 19:21 Last Admin: 12/25/20 19:43 Dose: 40 mg Documented by: Furosemide (Furosemide 20 Mg/2 Ml Vial) 60 mg IVPUSH NOW ONE Stop: 12/26/20 08:31 Last Admin: 12/26/20 09:47 Dose: 60 mg Documented by: Ondansetron HCl (Ondansetron 4 Mg/2 Ml Sdv) 4 mg IVPUSH ONETIME ONE Stop: 12/25/20 19:20 Last Admin: 12/25/20 19:43 Dose: 4 mg Documented by: - Exam Quality Assessment: DVT Prophylaxis General: Alert, Oriented, Cooperative, Mild Distress Lungs: Clear to Auscultation, Normal Respiratory Effort, Decreased Breath Sounds Cardiovascular: Regular Rate, Regular Rhythm, No Murmurs GI/Abdominal Exam: Soft, Non-Tender, No Organomegaly, No Distention Extremities: Non-Tender, No Pedal Edema - Patient Data Lab Results Last 24 hrs: Laboratory Results - last 24 hr 12/25/20 12/25/20 12/25/20 Range/Units 18:35 18:35 19:41 WBC 11.8 H (4.5-11.0) K/uL RBC 3.18 L (3.30-5.50) M/uL Hgb 9.6 L (12.0-15.0) g/dL Hct 30.3 L (36.0-48.0) % MCV 95 (80-98) fL MCH 30 (27-31) pg MCHC 32 (32-36) % Plt Count 260 (150-400) K/uL Neut % (Auto) 86 H (36-66) % Lymph % (Auto) 9 L (24-44) % [place] % (Auto) 5 (2-6) % Eos % (Auto) 1 L (2-4) % Baso % (Auto) 0 (0-1) % Puncture Site ABG pH (7.350-7.450) ABG pCO2 (35.0-42.0) mmHg ABG pO2 (75.0-100.0) mmHg ABG HCO3 (22.0-26.0) mmol/L ABG Total CO2 (21.0-25.0) mmol/L ABG O2 Saturation (95.0-98.0) % ABG O2 Content (15.0-23.0) %vol ABG Base Excess mm/L ABG Hemoglobin (12.0-16.0) g/dL ABG Oxyhemoglobin % ABG Carboxyhemoglobin (0.0-1.6) % ABG Methemoglobin % Eric Test O2 Delivery Device Oxygen Flow Rate L Sodium 148 (140-148) mmol/L Potassium 4.5 (3.6-5.2) mmol/L Chloride 109 H (100-108) mmol/L Carbon Dioxide 19 L (21-32) mmol/L Anion Gap 24.5 H (5.0-14.0) mmol/L BUN 21 H (7-18) mg/dL Creatinine 2.4 H (0.6-1.0) mg/dL Est Cr Clr Drug Dosing 15.21 mL/min Estimated GFR (MDRD) 19 L (>60) Glucose 225 H (74-106) mg/dL Lactic Acid (0.4-2.0) mmol/L Calcium 8.7 (8.5-10.1) mg/dL Magnesium (1.8-2.4) mg/dL Total Bilirubin 0.4 (0.2-1.0) mg/dL AST 42 H (15-37) U/L ALT 15 (12-78) U/L Alkaline Phosphatase 176 H (46-116) U/L Troponin I 0.020 (0.000-0.056) ng/mL NT-Pro-B Natriuret Pep 84441 H (5-450) pg/mL Total Protein 6.4 (6.4-8.2) g/dL Albumin 2.7 L (3.4-5.0) g/dL Globulin 3.7 H (2.3-3.5) g/dL Albumin/Globulin Ratio 0.7 L (1.2-2.2) Procalcitonin ng/mL Urine Color Yellow (YELLOW) Urine Appearance Cloudy A (CLEAR) Urine pH 6.0 (5.0-8.0) Ur Specific [place] >= 1.030 (1.008-1.030) Urine Protein 100 H (NEGATIVE) mg/dL Urine Glucose (UA) Negative (NEGATIVE) mg/dL Urine Ketones Negative (NEGATIVE) mg/dL Urine Occult Blood Moderate H (NEGATIVE) Urine Nitrite Negative (NEGATIVE) Urine Bilirubin Negative (NEGATIVE) Urine Urobilinogen 0.2 (0.2-1.0) EU/dL Ur Leukocyte Esterase Negative (NEGATIVE) Urine RBC 0-5 (0-5) Urine WBC 0-5 (0-5) Ur Epithelial Cells Few Amorphous Sediment Few Urine Bacteria Many Urine Mucus Not seen 12/25/20 12/25/20 12/25/20 Range/Units 20:15 20:34 20:34 WBC (4.5-11.0) K/uL RBC (3.30-5.50) M/uL Hgb (12.0-15.0) g/dL Hct (36.0-48.0) % MCV (80-98) fL MCH (27-31) pg MCHC (32-36) % Plt Count (150-400) K/uL Neut % (Auto) (36-66) % Lymph % (Auto) (24-44) % [place] % (Auto) (2-6) % Eos % (Auto) (2-4) % Baso % (Auto) (0-1) % Puncture Site Lt.radial ABG pH 7.408 (7.350-7.450) ABG pCO2 29.8 L (35.0-42.0) mmHg ABG pO2 63.7 L (75.0-100.0) mmHg ABG HCO3 18.4 L (22.0-26.0) mmol/L ABG Total CO2 17.3 L (21.0-25.0) mmol/L ABG O2 Saturation 92.1 L (95.0-98.0) % ABG O2 Content 11.6 L (15.0-23.0) %vol ABG Base Excess -5.0 mm/L ABG Hemoglobin 9.1 L (12.0-16.0) g/dL ABG Oxyhemoglobin 90.1 % ABG Carboxyhemoglobin 1.0 (0.0-1.6) % ABG Methemoglobin 1.2 % Eric Test Passed O2 Delivery Device Nasal cannula Oxygen Flow Rate 4.0 L Sodium (140-148) mmol/L Potassium (3.6-5.2) mmol/L Chloride (100-108) mmol/L Carbon Dioxide (21-32) mmol/L Anion Gap (5.0-14.0) mmol/L BUN (7-18) mg/dL Creatinine (0.6-1.0) mg/dL Est Cr Clr Drug Dosing mL/min Estimated GFR (MDRD) (>60) Glucose (74-106) mg/dL Lactic Acid 3.3 H (0.4-2.0) mmol/L Calcium (8.5-10.1) mg/dL Magnesium (1.8-2.4) mg/dL Total Bilirubin (0.2-1.0) mg/dL AST (15-37) U/L ALT (12-78) U/L Alkaline Phosphatase (46-116) U/L Troponin I (0.000-0.056) ng/mL NT-Pro-B Natriuret Pep (5-450) pg/mL Total Protein (6.4-8.2) g/dL Albumin (3.4-5.0) g/dL Globulin (2.3-3.5) g/dL Albumin/Globulin Ratio (1.2-2.2) Procalcitonin 2.00 ng/mL Urine Color (YELLOW) Urine Appearance (CLEAR) Urine pH (5.0-8.0) Ur Specific [place] (1.008-1.030) Urine Protein (NEGATIVE) mg/dL Urine Glucose (UA) (NEGATIVE) mg/dL Urine Ketones (NEGATIVE) mg/dL Urine Occult Blood (NEGATIVE) Urine Nitrite (NEGATIVE) Urine Bilirubin (NEGATIVE) Urine Urobilinogen (0.2-1.0) EU/dL Ur Leukocyte Esterase (NEGATIVE) Urine RBC (0-5) Urine WBC (0-5) Ur Epithelial Cells Amorphous Sediment Urine Bacteria Urine Mucus 12/26/20 12/26/20 12/26/20 Range/Units 05:12 05:12 08:29 WBC 13.5 H (4.5-11.0) K/uL RBC 2.60 L (3.30-5.50) M/uL Hgb 7.9 L (12.0-15.0) g/dL Hct 24.9 L (36.0-48.0) % MCV 96 (80-98) fL MCH 30 (27-31) pg MCHC 32 (32-36) % Plt Count 173 (150-400) K/uL Neut % (Auto) 85 H (36-66) % Lymph % (Auto) 3 L (24-44) % [place] % (Auto) 12 H (2-6) % Eos % (Auto) 0 L (2-4) % Baso % (Auto) 0 (0-1) % Puncture Site ABG pH (7.350-7.450) ABG pCO2 (35.0-42.0) mmHg ABG pO2 (75.0-100.0) mmHg ABG HCO3 (22.0-26.0) mmol/L ABG Total CO2 (21.0-25.0) mmol/L ABG O2 Saturation (95.0-98.0) % ABG O2 Content (15.0-23.0) %vol ABG Base Excess mm/L ABG Hemoglobin (12.0-16.0) g/dL ABG Oxyhemoglobin % ABG Carboxyhemoglobin (0.0-1.6) % ABG Methemoglobin % Eric Test O2 Delivery Device Oxygen Flow Rate L Sodium 147 (140-148) mmol/L Potassium 4.3 (3.6-5.2) mmol/L Chloride 110 H (100-108) mmol/L Carbon Dioxide 21 (21-32) mmol/L Anion Gap 20.3 H (5.0-14.0) mmol/L BUN 21 H (7-18) mg/dL Creatinine 2.4 H (0.6-1.0) mg/dL Est Cr Clr Drug Dosing 15.21 mL/min Estimated GFR (MDRD) 19 L (>60) Glucose 172 H (74-106) mg/dL Lactic Acid 2.2 H (0.4-2.0) mmol/L Calcium 8.6 (8.5-10.1) mg/dL Magnesium 1.8 (1.8-2.4) mg/dL Total Bilirubin (0.2-1.0) mg/dL AST (15-37) U/L ALT (12-78) U/L Alkaline Phosphatase (46-116) U/L Troponin I (0.000-0.056) ng/mL NT-Pro-B Natriuret Pep (5-450) pg/mL Total Protein (6.4-8.2) g/dL Albumin (3.4-5.0) g/dL Globulin (2.3-3.5) g/dL Albumin/Globulin Ratio (1.2-2.2) Procalcitonin ng/mL Urine Color (YELLOW) Urine Appearance (CLEAR) Urine pH (5.0-8.0) Ur Specific [place] (1.008-1.030) Urine Protein (NEGATIVE) mg/dL Urine Glucose (UA) (NEGATIVE) mg/dL Urine Ketones (NEGATIVE) mg/dL Urine Occult Blood (NEGATIVE) Urine Nitrite (NEGATIVE) Urine Bilirubin (NEGATIVE) Urine Urobilinogen (0.2-1.0) EU/dL Ur Leukocyte Esterase (NEGATIVE) Urine RBC (0-5) Urine WBC (0-5) Ur Epithelial Cells Amorphous Sediment Urine Bacteria Urine Mucus Result Diagrams: 12/26/20 05:12 12/26/20 05:12 Sepsis Event Note - Evaluation Sepsis Screening Result: Severe Sepsis Risk - Focused Exam Vital Signs: Vital Signs Temp Pulse Pulse Resp BP BP Pulse Ox 12/26/20 08:45 88 125/53 L 12/26/20 08:00 98.1 F 86 29 H 125/53 L 92 L 12/26/20 07:24 98 12/26/20 04:00 100.1 F 100 25 H 112/45 L 94 L 12/26/20 02:00 93 24 H 123/66 91 L 12/26/20 00:00 99.1 F 99 25 H 129/63 90 L 12/25/20 23:00 97 24 H 135/54 L 93 L 12/25/20 22:59 94 L Pulse Ox 12/26/20 08:45 12/26/20 08:00 12/26/20 07:24 12/26/20 04:00 12/26/20 02:00 12/26/20 00:00 12/25/20 23:00 12/25/20 22:59 93 L - Problem List Review Problem List Initiated/Reviewed/Updated: Yes - My Orders Last 24 Hours: My Active Orders 12/25/20 Dinner Regular Diet [DIET] 12/25/20 20:14 Blood Culture x2 Reflex Set [OM.PC] Urgent 12/25/20 20:30 CULTURE BLOOD [BC] Stat 12/25/20 20:34 CULTURE BLOOD [BC] Stat 12/25/20 21:18 Resuscitation Status Routine 12/25/20 21:50 Acetaminophen [TylenoL] 650 mg PO Q4H PRN Albuterol [Proventil Neb Soln] 2.5 mg NEB Q4H PRN Docusate Sodium [Colace] 100 mg PO BID PRN Enoxaparin [Lovenox] 30 mg SUBCUT BEDTIME LORazepam [Ativan ORAL Concentrate 1MG/0.5 ML U/D] 0.25 mg PO Q2H PRN Morphine [Morphine 10 MG/0.5 ML Oral Syringe] 2.5 mg PO Q1H PRN Ondansetron [Zofran] 4 mg IV Q4H PRN Sodium Chloride 0.9% [Saline Flush] 10 ml FLUSH ASDIRECTED PRN bisacodyL [Dulcolax] 5 mg PO DAILY PRN polyethylene glycoL 3350 [MiraLAX] 17 gm PO DAILY PRN 12/25/20 21:50 Ambulate [RC] QID Cardiac Monitoring [RC] .As Directed Height and Weight [RC] DAILY Intake and Output [RC] QSHIFT Notify Provider Vital Signs [RC] ASDIRECTED Oxygen Therapy [RC] PRN Pulse Oximetry [RC] CONTINUOUS RT Aerosol Therapy [RC] ASDIRECTED Up to Chair [RC] QID VTE/DVT Education [RC] Per Unit Routine Vital Signs [RC] Q4H Saline Lock Insert [OM.PC] Routine 12/25/20 22:00 cefTRIAXone [Rocephin] 1 gm Sodium Chloride 0.9% [Normal Saline] 50 ml IV Q24H 12/25/20 22:30 Doxycycline [Vibramycin] 100 mg Sodium Chloride 0.9% [Normal Saline] 100 ml IV Q12H 12/26/20 07:30 Levothyroxine 75 mcg PO ACBREAKFAST Pantoprazole [ProTONIX] 40 mg PO ACBREAKFAST 12/26/20 09:00 Aspirin [Halfprin] 81 mg PO DAILY Clopidogrel [Plavix] 75 mg PO DAILY Metoprolol Tartrate [Lopressor] 50 mg PO BID 12/26/20 10:43 Patient Status [ADT] Routine 12/27/20 05:00 BASIC METABOLIC PANEL,BMP [CHEM] Timed CBC WITH AUTO DIFF [HEME] Timed - Plan Plan:: ASSESSMENT AND PLAN HYPOXIC RESPIRATORY FAILURE-very short of breath with minimal exertion and noted to have hypoxia on initial presentation. CT scan of the chest shows bilateral pleural effusions with atelectasis, no obvious infiltrates. She has felt improved since admission and is currently requiring less supplemental oxygen. Question of underlying infection, lactic acid level was found noted to be elevated. Likely secondary to underlying renal insufficiency, no evidence of active sepsis at this time. 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 Chemotherapy currently on hold because of bone marrow suppression and progressive renal insufficiency. CHRONIC KIDNEY DISEASE STAGE IIIb-creatinine has increased now to 2.4. Possibly secondary to dehydration and intravascular volume depletion, as well as recent chemotherapy -Closely monitor urine output and renal function -Reassess labs in a.m. PALLIATIVE CARE-she would like to start management for comfort, in addition to current interventions -Morphine 2.5 mg every hour as needed for pain and/or dyspnea -Lorazepam 0.25 mg every 2 hours as needed for nausea and/or anxiety MAINTENANCE ISSUES -DVT prophylaxis; Lovenox 30 mg subcu daily -GI prophylaxis; continue outpatient PPI therapy -Maddox catheter; not indicated -Nutrition; regular diet -Nicotine dependence; not required CODE STATUS-DNR/DNI ADMISSION STATUS-this patient will be admitted to observation status, expect no more than a one night hospital stay for evaluation and management of problems as outlined above. DISPOSITION-anticipate discharge to home after the hospital stay. PRIMARY CARE PROVIDER-Dr. Cox
[2020-12-26] MEDS: Doxycycline 100 MG in Sodium Chloride 0.9% 100 ML IV SCH ×2 (11:30→22:05)
[2020-12-26] MEDS: LORazepam ORAL Concentrate 1MG/0.5ML U/D PO PRN (20:23)
[2020-12-26] MEDS: Enoxaparin 30 MG/0.3 ML Syringe SUBCUT SCH (20:30)
[2020-12-26] MEDS: cefTRIAXone 1 GM in Sodium Chloride 0.9% 50 ML IV SCH (21:32)
[2020-12-27] MEDS: Pantoprazole 40 MG Tab.CR PO SCH (07:43)
[2020-12-27] MEDS: Levothyroxine 25 MCG Tab PO SCH (07:43)
[2020-12-27] MEDS: Acetaminophen 325 MG Tab PO PRN (08:55)
[2020-12-27] MEDS: Aspirin 81 MG Tab.EC PO SCH (08:57)
[2020-12-27] MEDS: Clopidogrel 75 MG Tab PO SCH (08:58)
[2020-12-27] MEDS ORDERED: Furosemide 20 MG/2 ML VIAL IVPUSH ONE (09:00)
[2020-12-27] MEDS: Metoprolol Tartrate 50 MG Tab PO SCH ×2 (09:03→20:30)
[2020-12-27] MEDS: Doxycycline 100 MG in Sodium Chloride 0.9% 100 ML IV SCH ×2 (10:13→22:30)
--- NOTE | 2020-12-27 10:45 | PCM.PN ---
- General Info Date of Service: 12/27/20 Subjective Update: Ms. Kerr has felt improved from admission with less shortness of breath. She continues to get short of breath with activity. Vital signs have been stable and she has remained afebrile. Functional Status: Reports: Tolerating Diet, Ambulating, Urinating - Review of Systems General: Reports: Weakness, Fatigue. Denies: Fever, Chills Pulmonary: Reports: Shortness of Breath, Cough. Denies: Pleuritic Chest Pain, Sputum, Hemoptysis, Wheezing Cardiovascular: Reports: Dyspnea on Exertion, Edema. Denies: Chest Pain, Palpitations, Orthopnea, PND, Lightheadedness Gastrointestinal: Reports: No Symptoms Genitourinary: Reports: No Symptoms - Patient Data Vitals - Most Recent: Last Vital Signs Temp 98.3 F 12/27/20 07:40 Pulse 82 12/27/20 09:03 Resp 13 12/27/20 07:40 BP 142/66 H 12/27/20 09:03 Pulse Ox 94 L 12/27/20 07:40 Weight - Most Recent: 143 lb 9.6 oz I&O - Last 24 Hours: Intake & Output 12/26/20 12/27/20 12/27/20 22:59 06:59 14:59 Intake Total 150 460 Output Total 600 650 150 Balance -600 -500 310 Lab Results Last 24 Hours: Laboratory Results - last 24 hr 12/27/20 12/27/20 Range/Units 05:00 05:00 WBC 8.9 (4.5-11.0) K/uL RBC 2.54 L (3.30-5.50) M/uL Hgb 7.7 L (12.0-15.0) g/dL Hct 24.5 L (36.0-48.0) % MCV 97 (80-98) fL MCH 30 (27-31) pg MCHC 31 L (32-36) % Plt Count 142 L (150-400) K/uL Neut % (Auto) 57 (36-66) % Lymph % (Auto) 15 L (24-44) % [place] % (Auto) 25 H (2-6) % Eos % (Auto) 2 (2-4) % Baso % (Auto) 0 (0-1) % Sodium 145 (140-148) mmol/L Potassium 3.6 (3.6-5.2) mmol/L Chloride 109 H (100-108) mmol/L Carbon Dioxide 23 (21-32) mmol/L Anion Gap 16.6 H (5.0-14.0) mmol/L BUN 27 H (7-18) mg/dL Creatinine 2.4 H (0.6-1.0) mg/dL Est Cr Clr Drug Dosing 15.20 mL/min Estimated GFR (MDRD) 19 L (>60) Glucose 76 (74-106) mg/dL Calcium 8.4 L (8.5-10.1) mg/dL Gama Results Last 24 Hours: Microbiology 12/25/20 20:30 Aerobic Blood Culture - Preliminary Blood - Port-A-Cath NO GROWTH AFTER 1 DAY Anaerobic Blood Culture - Preliminary NO GROWTH AFTER 1 DAY 12/25/20 20:34 Aerobic Blood Culture - Preliminary Blood - Arm, Left NO GROWTH AFTER 1 DAY Anaerobic Blood Culture - Preliminary NO GROWTH AFTER 1 DAY Med Orders - Current: Current Medications Acetaminophen (Acetaminophen 325 Mg Tab) 650 mg PO Q4H PRN PRN Reason: Pain (Mild 1-3)/fever Last Admin: 12/27/20 08:55 Dose: 650 mg Documented by: Albuterol (Albuterol 0.083% 2.5 Mg/3 Ml Neb Soln) 2.5 mg NEB Q4H PRN PRN Reason: Shortness Of Breath/wheezing Last Admin: 12/26/20 20:30 Dose: 2.5 mg Documented by: Aspirin (Aspirin 81 Mg Tab.Ec) 81 mg PO DAILY [facility] Last Admin: 12/27/20 08:57 Dose: 81 mg Documented by: Bisacodyl (Bisacodyl 5 Mg Tab) 5 mg PO DAILY PRN PRN Reason: Constipation Clopidogrel Bisulfate (Clopidogrel 75 Mg Tab) 75 mg PO DAILY [facility] Last Admin: 12/27/20 08:58 Dose: 75 mg Documented by: Docusate Sodium (Docusate Sodium 100 Mg Cap) 100 mg PO BID PRN PRN Reason: Constipation Last Admin: 12/26/20 20:27 Dose: 100 mg Documented by: Enoxaparin Sodium (Enoxaparin 30 Mg/0.3 Ml Syringe) 30 mg SUBCUT BEDTIME [facility] Last Admin: 12/26/20 20:30 Dose: 30 mg Documented by: Heparin Sodium (Porcine) (Heparin Sodium 100 Units/Ml 5 Ml Syringe) 500 units FLUSH ASDIRECTED PRN PRN Reason: IV Use Ceftriaxone Sodium 1 gm/ (Sodium Chloride) 50 mls @ 100 mls/hr IV Q24H [facility] Last Admin: 12/26/20 21:32 Dose: 100 mls/hr Documented by: Doxycycline Hyclate 100 mg/ (Sodium Chloride) 100 mls @ 100 mls/hr IV Q12H [facility] Last Admin: 12/27/20 10:13 Dose: 100 mls/hr Documented by: Levothyroxine Sodium ([facility]ine 25 Mcg Tab) [facility] Last Admin: 12/27/20 07:43 Dose: 75 mcg Documented by: Lorazepam (Lorazepam Oral Concentrate 1mg/0.5ml U/D) 0.25 mg PO Q2H PRN PRN Reason: Nausea Last Admin: 12/25/20 23:27 Dose: 0.25 mg Documented by: Metoprolol Tartrate (Metoprolol Tartrate 50 Mg Tab) 50 mg PO BID [facility] Last Admin: 12/27/20 09:03 Dose: 50 mg Documented by: Morphine Sulfate (Morphine 10 Mg/0.5 Ml Oral Syringe) 2.5 mg PO Q1H PRN PRN Reason: Dyspnea Ondansetron HCl (Ondansetron 4 Mg/2 Ml Sdv) 4 mg IV Q4H PRN PRN Reason: Nausea/Vomiting Pantoprazole Sodium (Pantoprazole 40 Mg Tab.Cr) 40 mg PO ACBREAKFAST [facility] Last Admin: 12/27/20 07:43 Dose: 40 mg Documented by: Polyethylene Glycol (Polyethylene Glycol 3350 Powder 17 Gm Packet) 17 gm PO JOSS LY PRN PRN Reason: Constipation Sodium Chloride (Sodium Chloride 0.9% 10 Ml Syringe) 10 ml FLUSH ASDIRECTED PRN PRN Reason: Keep Vein Open Discontinued Medications Albuterol/Ipratropium (Albuterol/Ipratropium 3.0-0.5 Mg/3 Ml Neb Soln) 3 ml NEB ONETIME ONE Stop: 12/25/20 18:13 Last Admin: 12/25/20 18:32 Dose: 3 ml Documented by: Furosemide (Furosemide 40 Mg/4 Ml Vial) 40 mg IVPUSH ONETIME ONE Stop: 12/25/20 19:21 Last Admin: 12/25/20 19:43 Dose: 40 mg Documented by: Furosemide (Furosemide 20 Mg/2 Ml Vial) 60 mg IVPUSH NOW ONE Stop: 12/26/20 08:31 Last Admin: 12/26/20 09:47 Dose: 60 mg Documented by: Furosemide (Furosemide 20 Mg/2 Ml Vial) 60 mg IVPUSH NOW ONE Stop: 12/27/20 09:01 Last Admin: 12/27/20 08:59 Dose: 60 mg Documented by: Ondansetron HCl (Ondansetron 4 Mg/2 Ml Sdv) 4 mg IVPUSH ONETIME ONE Stop: 12/25/20 19:20 Last Admin: 12/25/20 19:43 Dose: 4 mg Documented by: - Exam Quality Assessment: DVT Prophylaxis General: Alert, Oriented, Cooperative, Mild Distress Lungs: Clear to Auscultation, Normal Respiratory Effort, Decreased Breath Sounds Cardiovascular: Regular Rate, Regular Rhythm, No Murmurs GI/Abdominal Exam: Soft, Non-Tender, No Organomegaly, No Distention Extremities: Non-Tender, Pedal Edema - Patient Data Lab Results Last 24 hrs: Laboratory Results - last 24 hr 12/27/20 12/27/20 Range/Units 05:00 05:00 WBC 8.9 (4.5-11.0) K/uL RBC 2.54 L (3.30-5.50) M/uL Hgb 7.7 L (12.0-15.0) g/dL Hct 24.5 L (36.0-48.0) % MCV 97 (80-98) fL MCH 30 (27-31) pg MCHC 31 L (32-36) % Plt Count 142 L (150-400) K/uL Neut % (Auto) 57 (36-66) % Lymph % (Auto) 15 L (24-44) % Emery % (Auto) 25 H (2-6) % Eos % (Auto) 2 (2-4) % Baso % (Auto) 0 (0-1) % Sodium 145 (140-148) mmol/L Potassium 3.6 (3.6-5.2) mmol/L Chloride 109 H (100-108) mmol/L Carbon Dioxide 23 (21-32) mmol/L Anion Gap 16.6 H (5.0-14.0) mmol/L BUN 27 H (7-18) mg/dL Creatinine 2.4 H (0.6-1.0) mg/dL Est Cr Clr Drug Dosing 15.20 mL/min Estimated GFR (MDRD) 19 L (>60) Glucose 76 (74-106) mg/dL Calcium 8.4 L (8.5-10.1) mg/dL Result Diagrams: 12/27/20 05:00 12/27/20 05:00 Gama Results Last 24 hrs: Microbiology 12/25/20 20:30 Aerobic Blood Culture - Preliminary Blood - Port-A-Cath NO GROWTH AFTER 1 DAY Anaerobic Blood Culture - Preliminary NO GROWTH AFTER 1 DAY 12/25/20 20:34 Aerobic Blood Culture - Preliminary Blood - Arm, Left NO GROWTH AFTER 1 DAY Anaerobic Blood Culture - Preliminary NO GROWTH AFTER 1 DAY Sepsis Event Note - Evaluation Sepsis Screening Result: No Definite Risk - Focused Exam Vital Signs: Vital Signs Temp Pulse Pulse Resp BP BP Pulse Ox 12/27/20 09:03 82 142/66 H 12/27/20 07:40 98.3 F 82 13 142/66 H 94 L 12/27/20 07:26 94 L 12/27/20 03:23 16 139/49 L 90 L 12/27/20 00:00 18 92 L - Problem List Review Problem List Initiated/Reviewed/Updated: Yes - My Orders Last 24 Hours: My Active Orders 12/26/20 10:43 Patient Status [ADT] Routine 12/27/20 10:26 Heparin Sodium [Heparin Lock Flush 100 Units/ML] 500 units FLUSH ASDIRECTED PRN 12/28/20 05:00 BASIC METABOLIC PANEL,BMP [CHEM] Timed CBC WITH AUTO DIFF [HEME] Timed - Plan Plan:: ASSESSMENT AND PLAN HYPOXIC RESPIRATORY FAILURE-very short of breath with minimal exertion and noted to have hypoxia on initial presentation. CT scan of the chest shows bilateral pleural effusions with atelectasis, no obvious infiltrates. She has felt impr [place] since admission and is currently requiring less supplemental oxygen. She has remained afebrile with no evidence of ongoing infection. Good diuresis yesterday with IV furosemide. -Blood cultures pending -Discontinue ceftriaxone and doxycycline -Nebulized albuterol -Furosemide 60 mg IV today -Echocardiogram when available -Supplemental oxygen as needed STAGE IV PANCREATIC CARCINOMA-she had been receiving palliative chemotherapy. Chemotherapy currently on hold because of bone marrow suppression and progressive renal insufficiency. CHRONIC KIDNEY DISEASE STAGE IIIb-creatinine has increased now to 2.4. Possibly secondary to dehydration and intravascular volume depletion, as well as recent chemotherapy -Closely monitor urine output and renal function -Reassess labs in a.m. PALLIATIVE CARE-she would like to start management for comfort, in addition to current interventions -Morphine 2.5 mg every hour as needed for pain and/or dyspnea -Lorazepam 0.25 mg every 2 hours as needed for nausea and/or anxiety MAINTENANCE ISSUES -DVT prophylaxis; Lovenox 30 mg subcu daily -GI prophylaxis; continue outpatient PPI therapy -Maddox catheter; not indicated -Nutrition; regular diet -Nicotine dependence; not required CODE STATUS-DNR/DNI ADMISSION STATUS-this patient will be admitted to observation status, expect no more than a one night hospital stay for evaluation and management of problems as outlined above. DISPOSITION-anticipate discharge to home after the hospital stay. PRIMARY CARE PROVIDER-Dr. Cox
[2020-12-27] MEDS: Enoxaparin 30 MG/0.3 ML Syringe SUBCUT SCH (20:30)
[2020-12-27] MEDS: cefTRIAXone 1 GM in Sodium Chloride 0.9% 50 ML IV SCH (21:44)
[2020-12-28] MEDS: Metoprolol Tartrate 50 MG Tab PO SCH ×2 (08:21→20:22)
[2020-12-28] MEDS: Aspirin 81 MG Tab.EC PO SCH (08:21)
[2020-12-28] MEDS: Levothyroxine 25 MCG Tab PO SCH (08:22)
[2020-12-28] MEDS: Pantoprazole 40 MG Tab.CR PO SCH (08:22)
[2020-12-28] MEDS: Clopidogrel 75 MG Tab PO SCH (08:22)
[2020-12-28] MEDS ORDERED: Potassium Chloride 20 MEQ Tab.ER PO ONE (09:00)
--- NOTE | 2020-12-28 10:58 | PCM.PN ---
- General Info Date of Service: 12/28/20 Subjective Update: Ms. Kerr has unfortunately experienced more left thigh pain over the past 24 h. She had noted pain in her thigh yesterday but it has become worse and she feels that there is some weakness to the point that she has to lift her leg up to get out of bed. Once she is sitting on the side of the bed she is able to stand up and ambulate without significant limp or obvious weakness. There is no tenderness to palpation of the thigh but it definitely hurts when she tries to move it especially when lying in bed. She is subjectively feeling somewhat more short of breath today, not requiring increased supplemental oxygen. Functional Status: Reports: Tolerating Diet, Ambulating, Urinating - Review of Systems General: Reports: Weakness, Fatigue. Denies: Fever, Chills Pulmonary: Reports: Shortness of Breath, Cough. Denies: Pleuritic Chest Pain, Sputum, Hemoptysis, Wheezing Cardiovascular: Reports: Dyspnea on Exertion. Denies: Chest Pain, Palpitations, Orthopnea, PND, Edema, Lightheadedness Gastrointestinal: Reports: No Symptoms Musculoskeletal: Reports: Leg Pain (Left thigh pain) Neurological: Reports: Weakness (Mild to moderate weakness on flexion at the left hip) - Patient Data Vitals - Most Recent: Last Vital Signs Temp 97.8 F 12/28/20 07:00 Pulse 86 12/28/20 08:21 Resp 20 12/28/20 07:00 BP 167/67 H 12/28/20 08:21 Pulse Ox 97 12/28/20 08:00 Weight - Most Recent: 134 lb 7.712 oz I&O - Last 24 Hours: Intake & Output 12/27/20 12/28/20 12/28/20 22:59 06:59 14:59 Intake Total 410 480 Output Total 550 425 900 Balance -140 -425 -420 Lab Results Last 24 Hours: Laboratory Results - last 24 hr 12/28/20 12/28/20 Range/Units 04:10 04:10 WBC 7.6 (4.5-11.0) K/uL RBC 2.65 L (3.30-5.50) M/uL Hgb 8.1 L (12.0-15.0) g/dL Hct 25.5 L (36.0-48.0) % MCV 96 (80-98) fL MCH 31 (27-31) pg MCHC 32 (32-36) % Plt Count 134 L (150-400) K/uL Neut % (Auto) 46 (36-66) % Lymph % (Auto) 25 (24-44) % [place] % (Auto) 26 H (2-6) % Eos % (Auto) 2 (2-4) % Baso % (Auto) 1 (0-1) % Sodium 150 H (140-148) mmol/L Potassium 3.5 L (3.6-5.2) mmol/L Chloride 110 H (100-108) mmol/L Carbon Dioxide 25 (21-32) mmol/L Anion Gap 18.5 H (5.0-14.0) mmol/L BUN 29 H (7-18) mg/dL Creatinine 2.3 H (0.6-1.0) mg/dL Est Cr Clr Drug Dosing 15.86 mL/min Estimated GFR (MDRD) 20 L (>60) Glucose 80 (74-106) mg/dL Calcium 8.6 (8.5-10.1) mg/dL [place]ama Results Last 24 Hours: Microbiology 12/25/20 20:34 Aerobic Blood Culture - Preliminary Blood - Arm, Left NO GROWTH AFTER 2 DAYS Anaerobic Blood Culture - Preliminary NO GROWTH AFTER 2 DAYS 12/25/20 20:30 Aerobic Blood Culture - Preliminary Blood - Port-A-Cath NO GROWTH AFTER 2 DAYS Anaerobic Blood Culture - Preliminary NO GROWTH AFTER 2 DAYS Med Orders - Current: Current Medications Acetaminophen (Acetaminophen 325 Mg Tab) 650 mg PO Q4H PRN PRN Reason: Pain (Mild 1-3)/fever Last Admin: 12/27/20 08:55 Dose: 650 mg Documented by: Albuterol (Albuterol 0.083% 2.5 Mg/3 Ml Neb Soln) 2.5 mg NEB Q4H PRN PRN Reason: Shortness Of Breath/wheezing Last Admin: 12/26/20 20:30 Dose: 2.5 mg Documented by: Aspirin (Aspirin 81 Mg Tab.Ec) 81 mg PO DAILY [facility] Last Admin: 12/28/20 08:21 Dose: 81 mg Documented by: Bisacodyl (Bisacodyl 5 Mg Tab) 5 mg PO DAILY PRN PRN Reason: Constipation Clopidogrel Bisulfate (Clopidogrel 75 Mg Tab) 75 mg PO DAILY [facility] Last Admin: 12/28/20 08:22 Dose: 75 mg Documented by: Docusate Sodium (Docusate Sodium 100 Mg Cap) 100 mg PO BID PRN PRN Reason: Constipation Last Admin: 12/26/20 20:27 Dose: 100 mg Documented by: Enoxaparin Sodium (Enoxaparin 30 Mg/0.3 Ml Syringe) 30 mg SUBCUT BEDTIME [facility] Last Admin: 12/27/20 20:30 Dose: 30 mg Documented by: Furosemide (Furosemide 40 Mg/4 Ml Vial) 60 mg IVPUSH NOW ONE Stop: 12/28/20 10:53 Heparin Sodium (Porcine) (Heparin Sodium 100 Units/Ml 5 Ml Syringe) 500 units FLUSH ASDIRECTED PRN PRN Reason: IV Use Last Admin: 12/28/20 04:33 Dose: 500 units Documented by: Levothyroxine Sodium (Levothyroxine 25 Mcg Tab) 75 mcg PO ACBREAKFAST [facility] Last Admin: 12/28/20 08:22 Dose: 75 mcg Documented by: Lorazepam (Lorazepam Oral Concentrate 1mg/0.5ml U/D) 0.25 mg PO Q2H PRN PRN Reason: Nausea Last Admin: 12/25/20 23:27 Dose: 0.25 mg Documented by: Metoprolol Tartrate (Metoprolol Tartrate 50 Mg Tab) 50 mg PO BID [facility] Last Admin: 12/28/20 08:21 Dose: 50 mg Documented by: Morphine Sulfate (Morphine 10 Mg/0.5 Ml Oral Syringe) 2.5 mg PO Q1H PRN PRN Reason: Dyspnea Ondansetron HCl (Ondansetron 4 Mg/2 Ml Sdv) 4 mg IV Q4H PRN PRN Reason: Nausea/Vomiting Pantoprazole Sodium (Pantoprazole 40 Mg Tab.Cr) 40 mg PO ACBREAKFAST [facility] Last Admin: 12/28/20 08:22 Dose: 40 mg Documented by: Polyethylene Glycol (Polyethylene Glycol 3350 Powder 17 Gm Packet) 17 gm PO DAILY PRN PRN Reason: Constipation Sodium Chloride (Sodium Chloride 0.9% 10 Ml Syringe) 10 ml FLUSH ASDIRECTED PRN PRN Reason: Keep Vein Open Discontinued Medications Albuterol/Ipratropium (Albuterol/Ipratropium 3.0-0.5 Mg/3 Ml Neb Soln) 3 ml NEB ONETIME ONE Stop: 12/25/20 18:13 Last Admin: 12/25/20 18:32 Dose: 3 ml Documented by: Furosemide (Furosemide 40 Mg/4 Ml Vial) 40 mg IVPUSH ONETIME ONE Stop: 12/25/20 19:21 Last Admin: 12/25/20 19:43 Dose: 40 mg Documented by: Furosemide (Furosemide 20 Mg/2 Ml Vial) 60 mg IVPUSH NOW ONE Stop: 12/26/20 08:31 Last Admin: 12/26/20 09:47 Dose: 60 mg Documented by: Furosemide (Furosemide 20 Mg/2 Ml Vial) 60 mg IVPUSH NOW ONE Stop: 12/27/20 09:01 Last Admin: 12/27/20 08:59 Dose: 60 mg Documented by: Ceftriaxone Sodium 1 gm/ (Sodium Chloride) 50 mls @ 100 mls/hr IV Q24H [facility] Last Admin: 12/27/20 21:44 Dose: 100 mls/hr Documented by: Doxycycline Hyclate 100 mg/ (Sodium Chloride) 100 mls @ 100 mls/hr IV Q12H [facility] Last Admin: 12/27/20 22:30 Dose: 100 mls/hr Documented by: Ondansetron HCl (Ondansetron 4 Mg/2 Ml Sdv) 4 mg IVPUSH ONETIME ONE Stop: 12/25/20 19:20 Last Admin: 12/25/20 19:43 Dose: 4 mg Documented by: Potassium Chloride (Potassium Chloride 20 Meq Tab.Er) 40 meq PO ONETIME ONE Stop: 12/28/20 09:01 Last Admin: 12/28/20 10:11 Dose: 40 meq Documented by: - Exam General: Alert, Oriented, Cooperative, Moderate Distress Lungs: Clear to Auscultation, Normal Respiratory Effort. No: Crackles, Rales, Rhonchi, Wheezing Cardiovascular: Regular Rate, Regular Rhythm, No Murmurs GI/Abdominal Exam: Soft, Non-Tender, No Organomegaly, No Distention Extremities: Non-Tender, No Pedal Edema Neurological: No: Strength Equal Bilateral (Mild to moderate weakness on flexion at the left hip, no other weakness identified in either leg.) - Patient Data Lab Results Last 24 hrs: Laboratory Results - last 24 hr 12/28/20 12/28/20 Range/Units 04:10 04:10 WBC 7.6 (4.5-11.0) K/uL RBC 2.65 L (3.30-5.50) M/uL Hgb 8.1 L (12.0-15.0) g/dL Hct 25.5 L (36.0-48.0) % MCV 96 (80-98) fL MCH 31 (27-31) pg MCHC 32 (32-36) % Plt Count 134 L (150-400) K/uL Neut % (Auto) 46 (36-66) % Lymph % (Auto) 25 (24-44) % [place] % (Auto) 26 H (2-6) % Eos % (Auto) 2 (2-4) % Baso % (Auto) 1 (0-1) % Sodium 150 H (140-148) mmol/L Potassium 3.5 L (3.6-5.2) mmol/L Chloride 110 H (100-108) mmol/L Carbon Dioxide 25 (21-32) mmol/L Anion Gap 18.5 H (5.0-14.0) mmol/L BUN 29 H (7-18) mg/dL Creatinine 2.3 H (0.6-1.0) mg/dL Est Cr Clr Drug Dosing 15.86 mL/min Estimated GFR (MDRD) 20 L (>60) Glucose 80 (74-106) mg/dL Calcium 8.6 (8.5-10.1) mg/dL Result Diagrams: 12/28/20 04:10 12/28/20 04:10 Gama Results Last 24 hrs: Microbiology 12/25/20 20:34 Aerobic Blood Culture - Preliminary Blood - Arm, Left NO GROWTH AFTER 2 DAYS Anaerobic Blood Culture - Preliminary NO GROWTH AFTER 2 DAYS 12/25/20 20:30 Aerobic Blood Culture - Preliminary Blood - Port-A-Cath NO GROWTH AFTER 2 DAYS Anaerobic Blood Culture - Preliminary NO GROWTH AFTER 2 DAYS Sepsis Event Note - Evaluation Sepsis Screening Result: No Definite Risk - Focused Exam Vital Signs: Vital Signs Temp Pulse Pulse Resp BP BP Pulse Ox 12/28/20 08:21 86 167/67 H 12/28/20 08:00 12/28/20 07:00 97.8 F 86 20 167/67 H 96 12/28/20 03:07 97.1 F 84 20 157/61 H 92 L 12/28/20 00:20 95 Pulse Ox 12/28/20 08:21 12/28/20 08:00 97 12/28/20 07:00 12/28/20 03:07 12/28/20 00:20 - Problem List Review Problem List Initiated/Reviewed/Updated: Yes - My Orders Last 24 Hours: My Active Orders 12/27/20 10:26 Heparin Sodium [Heparin Lock Flush 100 Units/ML] 500 units FLUSH ASDIRECTED PRN 12/27/20 11:24 Evaluate for Home Oxygen [RT Evaluate for Home Oxygen] [RC] Click to Edit 12/28/20 10:48 Femur Min 2V Lt [CR] Stat Hip Min 2V or 3V Lt [CR] Stat Lumbar Spine wo Cont [CT] Stat 12/28/20 10:52 Furosemide [Lasix] 60 mg IVPUSH NOW ONE - Plan Plan:: ASSESSMENT AND PLAN HYPOXIC RESPIRATORY FAILURE-very short of breath with minimal exertion and noted to have hypoxia on initial presentation. CT scan of the chest shows bilateral pleural effusions with atelectasis, no obvious infiltrates. She has felt improved since admission and is currently requiring less supplemental oxygen. She has remained afebrile with no evidence of ongoing infection. Good diuresis yesterday with IV furosemide. -Nebulized albuterol -Furosemide 60 mg IV today -Echocardiogram when available -Supplemental oxygen as needed STAGE IV PANCREATIC CARCINOMA-she had been receiving palliative chemotherapy. Chemotherapy currently on hold because of bone marrow suppression and progressive renal insufficiency. CHRONIC KIDNEY DISEASE STAGE IIIb-creatinine has increased now to 2.4. Possibly secondary to dehydration and intravascular volume depletion, as well as recent chemotherapy -Closely monitor urine output and renal function -Reassess labs in a.m. PAIN LEFT THIGH-no tenderness to palpation but there does appear to be mild to moderate weakness flexion of the left leg at the hip. No difficulty with standing or ambulation. -X-ray left femur and hip -CT scan without contrast lumbar spine PALLIATIVE CARE-she would like to start management for comfort, in addition to current interventions -Morphine 2.5 mg every hour as needed for pain and/or dyspnea -Lorazepam 0.25 mg every 2 hours as needed for nausea and/or anxiety MAINTENANCE ISSUES -DVT prophylaxis; Lovenox 30 mg subcu daily -GI prophylaxis; continue outpatient PPI therapy -Maddox catheter; not indicated -Nutrition; regular diet -Nicotine dependence; not required CODE STATUS-DNR/DNI ADMISSION STATUS-this patient will be admitted to observation status, expect no more than a one night hospital stay for evaluation and management of problems as outlined above. DISPOSITION-anticipate discharge to home after the hospital stay. PRIMARY CARE PROVIDER-Dr. Cox
[2020-12-28] MEDS ORDERED: Furosemide 20 MG/2 ML VIAL IVPUSH ONE (11:00)
--- NOTE | 2020-12-28 12:47 | CRLCT ---
Indication Left thigh pain. Stage IV pancreatic cancer. TECHNIQUE: Noncontrast CT images were acquired through the lumbar spine. COMPARISON: CT chest abdomen pelvis 11/17/2020, MRI lumbar spine 03/25/2008. FINDINGS: The lumbar lordosis is preserved. Vertebral heights maintained. No acute fracture or spondylolisthesis. T12-L1: No spinal canal or neural foraminal narrowing. L1-2: No spinal canal or neural foraminal narrowing. L2-3: Minimal facet arthropathy. No spinal canal or neural foraminal narrowing. L3-4: Minimal facet arthropathy. No spinal canal or neural foraminal narrowing. L4-5: Shallow posterior disc bulge. Mild bilateral facet arthropathy. No spinal canal or neural foraminal narrowing. L5-S1: Posterior disc bulge. [id number] bilateral facet arthropathy. No spinal canal narrowing. Minimal bilateral neural foraminal narrowing. Prominent lateral osteophytes encroach on the extraforaminal exiting L5 nerve roots. Sacroiliac joint degenerative changes. Incompletely visualized bilateral pleural effusions. Aortoiliac atherosclerotic calcifications. IMPRESSION: 1. No acute fracture. 2. Multilevel lumbar spondylosis without spinal canal stenosis. 3. At L5-S1, prominent lateral osteophytes encroach on and potentially impinge the bilateral exiting L5 nerve roots in the extraforaminal zones. 4. Incompletely visualized bilateral pleural effusions. Please note that all CT scans at this facility use dose modulation, iterative reconstruction, and/or weight-based dosing when appropriate to reduce radiation dose to as low as reasonably achievable. Dictated by Dmitry Vides MD @ Dec 28 2020 12:40PM Signed by Dr. Dmitry Vides @ Dec 28 2020 12:45PM
--- NOTE | 2020-12-28 13:27 | CRLCR ---
INDICATION: New pain. History of pancreatic cancer, stage IV. TECHNIQUE: Femur radiographs 2 views on 4 films COMPARISON: None FINDINGS: Bones: Alignment is normal. No acute fractures or aggressive osseous lesions seen. Left knee arthroplasty hardware grossly intact. Joint spaces: Mild to moderate degenerative changes of the left hip. Soft tissues: Vascular stent material posterior to the mid diaphysis of the left femur. Calcified atherosclerotic disease involving proximal left superficial artery extending to the left pelvis. IMPRESSION: 1. No acute osseous injury moving the left femur. No suspicious bony lesion identified. Dictated by Arpit Aguirre MD @ 12/28/2020 1:26:06 PM Dictated by: Arpit Aguirre MD @ 12/28/2020 13:26:17 (Electronically Signed)
[2020-12-28] MEDS: Dexamethasone 4 MG/ML SDV IVPUSH SCH (18:54)
[2020-12-28] MEDS: Enoxaparin 30 MG/0.3 ML Syringe SUBCUT SCH (20:21)
[2020-12-29] MEDS: Dexamethasone 4 MG/ML SDV IVPUSH SCH ×2 (03:00→10:27)
[2020-12-29] MEDS: Acetaminophen 325 MG Tab PO PRN ×2 (07:03→10:27)
[2020-12-29] MEDS: Pantoprazole 40 MG Tab.CR PO SCH (07:04)
[2020-12-29] MEDS: Levothyroxine 25 MCG Tab PO SCH (07:04)
[2020-12-29] MEDS: Clopidogrel 75 MG Tab PO SCH (10:04)
[2020-12-29] MEDS: Metoprolol Tartrate 50 MG Tab PO SCH (10:04)
[2020-12-29] MEDS: Aspirin 81 MG Tab.EC PO SCH (10:05)
[2020-12-29 10:19] VITALS: BP 178/65; PULSE 86
--- NOTE | 2020-12-29 12:41 | PCM.DCSUM1 ---
Discharge Summary - Hospital Course Brief History: 80-year-old female with recent palliative chemotherapy for stage IV pancreatic cancer who presented with progressive weakness and dyspnea. She was admitted for management of suspected congestive heart failure with hypoxic respiratory failure and possible pneumonia. She also had acute on chronic kidney injury. Diagnosis: Stroke: No - Discharge Data Discharge Date: 12/29/20 Discharge Disposition: Home, W Home Health Agency 06 Condition: Fair - Referral to Home Health Date of Face to Face Encounter: 12/29/20 Reason for Homebound Status: Bilateral lower extremity weakness and pain due to lumbar radiculopathy Primary Care Physician: Ash Cox MD Skilled Need: Nursing, physical therapy and home health aide - Discharge Diagnosis/Problem(s) (1) Congestive heart failure (CHF) SNOMED Code(s): 58811647 ICD Code: I50.9 - HEART FAILURE, UNSPECIFIED Status: Acute Priority: High Qualifiers: Heart failure type: diastolic Heart failure chronicity: acute on chronic Qualified Code(s): I50.33 - Acute on chronic diastolic (congestive) heart failure (2) Acute respiratory failure with hypoxia SNOMED Code(s): 15486822, 800893790 ICD Code: J96.01 - ACUTE RESPIRATORY FAILURE WITH HYPOXIA Status: Acute (3) Acute on chronic kidney failure SNOMED Code(s): 400830108 ICD Code: N17.9 - ACUTE KIDNEY FAILURE, UNSPECIFIED; N18.9 - CHRONIC KIDNEY DISEASE, UNSPECIFIED Status: Acute Qualifiers: Acute renal failure type: unspecified Chronic kidney disease stage 3 subtype: stage 3b (GFR 30-44) (4) Anemia SNOMED Code(s): 316548192 ICD Code: D64.9 - ANEMIA, UNSPECIFIED Status: Acute Qualifiers: Anemia type: due to chronic kidney disease Chronic kidney disease stage: stage 4 (severe) Qualified Code(s): N18.4 - Chronic kidney disease, stage 4 (severe); D63.1 - Anemia in chronic kidney disease (5) Thrombocytopenia SNOMED Code(s): 571199653 ICD Code: D69.6 - THROMBOCYTOPENIA, UNSPECIFIED Status: Acute (6) Pancreatic carcinoma SNOMED Code(s): 178176952 ICD Code: C25.9 - MALIGNANT NEOPLASM OF PANCREAS, UNSPECIFIED Status: Chronic Priority: High - Patient Summary/Data Hospital Course: Kasey presented to the emergency room with progressive weakness and dyspnea. Work-up in the emergency room revealed evidence for congestive heart failure with anasarca, no pleural effusions as well as some ascites. Her kidney function had decreased from a baseline of stage IIIb to stage IV. Initially there was some concern for pneumonia versus atelectasis leading to a fever noted in the emergency room. She was started on empiric antibiotics as well as diuresis and admitted to the hospital for further management. She required supplemental oxygen at the time of admission. Over the course of the next couple of days there was improvement in her respiratory status. She did not have any additional fevers other than that alone temperature elevation in the emergency room so antibiotics were discontinued. Diuretics were continued with steady improvement in her symptoms as well as her respiratory status. Supplemental oxygen requirements decreased throughout the course of the hospital stay but she did continue to require supplemental oxygen. She had regained enough strength and had enough improvement in her symptoms that she was initially feeling ready for discharge on 12/28. Unfortunately she developed increasing pain in her left thigh area as well as weakness in both legs. X-rays of the left femur were unremarkable but a CT scan of the lumbar spine showed foraminal stenosis in the lower lumbar spine which was likely the cause for her discomfort and weakness. She was started on dexamethasone and over the next 24 hours did have improvement in the left leg pain. Her strength is better but she is weak compared to baseline. She has some mild pain in the right thigh area today. We did get an echocardiogram on the morning of discharge which showed a normal ejection fraction but did show evidence for grade 2 diastolic dysfunction as well as moderate aortic insufficiency. Volume status has been steadily improving. We did increase her Lasix from 20 mg up to 40 mg daily. She is currently receiving adequate pain control with acetaminophen alone. Since she has responded to the steroids were going to continue this for another 8 days with 4 mg twice a day for 3 days and then 4 mg daily for 5 days. She may benefit from injections if she does continue to get relief but does not have resolution of the leg pain. Discussions were held about her advanced cancer. At this point she would like to try home care with some physical therapy with the hope that she can regain some strength and endurance. She is aware of hospice when her disease progresses further. She is not currently ready to make the transition to hospice at this time. She will be discharged to home with help from her daughter as well as home care services. - Patient Instructions Diet: Usual Diet as Tolerated Activity: As Tolerated Showering/Bathing: May Shower Notify Provider of: Fever, Increased Pain Other/Special Instructions: 1. You were in the hospital for management of acute respiratory failure with hypoxia caused by diastolic (difficulty relaxing) congestive heart failure. Your condition has been improving with diuretic therapy. I do recommend that we increase your furosemide from 20 to 40 mg daily. You do qualify for home oxygen and we have set this up through [facility]. 2. During the hospital stay you developed pain in your left and then your right leg. I suspect this is related to spinal stenosis because of arthritis in your lower lumbar spine. We have started you on dexamethasone to help reduce inflammation and hopefully reduce pain. Please take 4 mg twice daily tonight and for 3 more days. Then take 4 mg once daily for 5 days. You may use acetaminophen for breakthrough pain. If you have additional pain after the steroids have ended talk to Dr. Cox about epidural steroid injections. 3. Continue your other home medications as previously prescribed. 4. I have placed a referral to home health care. They will provide nursing, physical therapy and home health aide services to help ease your transition home. 5. Follow up with Dr. Cox in the next 1 week. - Discharge Plan *PRESCRIPTION DRUG MONITORING PROGRAM REVIEWED*: Not Applicable *COPY OF PRESCRIPTION DRUG MONITORING REPORT IN PATIENT EDWARD: Not Applicable Prescriptions/Med Rec: dexAMETHasone [Dexamethasone] 4 mg PO ASDIRECTED #12 tab Furosemide 40 mg PO DAILY #30 tablet Home Medications: Home Meds Levothyroxine Sodium [Synthroid] 75 mcg PO DAILY 06/26/14 [History] Rosuvastatin [Crestor] 40 mg PO BEDTIME 06/26/14 [History] amLODIPine Besylate [Amlodipine Besylate] 10 mg PO DAILY 06/26/14 [History] Omeprazole [Prilosec] 20 mg PO DAILY 11/25/14 [History] Acetaminophen 650 mg PO Q6HR PRN 09/05/20 [History] Cyanocobalamin (Vitamin B-12) [Vitamin B-12] 100 mcg PO DAILY 09/05/20 [History] Docusate Sodium [Colace] 100 mg PO BID PRN 09/05/20 [History] Metoprolol Tartrate [Lopressor] 50 mg PO BID 09/05/20 [History] bisacodyL [Dulcolax] 5 mg PO DAILY PRN 09/05/20 [History] Aspirin [Halfprin] 81 mg PO DAILY 12/17/20 [History] Clopidogrel [Plavix] 75 mg PO DAILY 12/17/20 [History] Hydrocodone/Acetaminophen [Hydrocodon-Acetaminophen 5-325] 1 each PO Q6HR PRN 12/17/20 [History] Prochlorperazine [Compazine] 10 mg PO Q6HR PRN 12/17/20 [History] glipiZIDE [Glucotrol] 5 mg PO DAILY 12/17/20 [History] Cholecalciferol (Vitamin D3) [Vitamin D3] 1,000 unit PO DAILY 12/25/20 [History] Furosemide 40 mg PO DAILY #30 tablet 12/29/20 [Rx] dexAMETHasone [Dexamethasone] 4 mg PO ASDIRECTED #12 tab 12/29/20 [Rx] Oxygen Therapy Mode: Nasal Cannula Oxygen Flow Rate (L/min): 4 Patient Handouts: Spinal Stenosis, Dexamethasone tablets Referrals: Ash Cox MD [Primary Care Provider] - 01/05/21 1:30 pm (1 week -follow-up hospital stay for diastolic congestive heart failure with hypoxic respiratory failure) - Discharge Summary/Plan Comment DC Time >30 min.: Yes (40-home O2 and HHC) - Patient Data Vitals - Most Recent: Last Vital Signs Temp 35.8 C L 12/29/20 10:16 Pulse 86 12/29/20 10:16 Resp 18 12/29/20 10:16 BP 178/65 H 12/29/20 10:16 Pulse Ox 94 L 12/29/20 10:16 Weight - Most Recent: 60.6 kg I&O - Last 24 hours: Intake & Output 12/28/20 12/29/20 12/29/20 22:59 06:59 14:59 Intake Total 360 830 Output Total 1500 300 500 Balance -1140 -300 330 ROSMERY Results - Last 24 hrs: Microbiology 12/25/20 20:34 Aerobic Blood Culture - Preliminary Blood - Arm, Left NO GROWTH AFTER 3 DAYS Anaerobic Blood Culture - Preliminary NO GROWTH AFTER 3 DAYS 12/25/20 20:30 Aerobic Blood Culture - Preliminary Blood - Port-A-Cath NO GROWTH AFTER 3 DAYS Anaerobic Blood Culture - Preliminary NO GROWTH AFTER 3 DAYS Med Orders - Current: Current Medications Acetaminophen (Acetaminophen 325 Mg Tab) 650 mg PO Q4H PRN PRN Reason: Pain (Mild 1-3)/fever Last Admin: 12/29/20 10:27 Dose: 650 mg Documented by: Albuterol (Albuterol 0.083% 2.5 Mg/3 Ml Neb Soln) 2.5 mg NEB Q4H PRN PRN Reason: Shortness Of Breath/wheezing Last Admin: 12/26/20 20:30 Dose: 2.5 mg Documented by: Aspirin (Aspirin 81 Mg Tab.Ec) 81 mg PO DAILY [facility] Last Admin: 12/29/20 10:05 Dose: 81 mg Documented by: Bisacodyl (Bisacodyl 5 Mg Tab) 5 mg PO DAILY PRN PRN Reason: Constipation Clopidogrel Bisulfate (Clopidogrel 75 Mg Tab) 75 mg PO DAILY [facility] Last Admin: 12/29/20 10:04 Dose: 75 mg Documented by: Dexamethasone (Dexamethasone 4 Mg/Ml Sdv) 4 mg IVPUSH Q8H [facility] Last Admin: 12/29/20 10:27 Dose: 4 mg Documented by: Docusate Sodium (Docusate Sodium 100 Mg Cap) 100 mg PO BID PRN PRN Reason: Constipation Last Admin: 12/26/20 20:27 Dose: 100 mg Documented by: Enoxaparin Sodium (Enoxaparin 30 Mg/0.3 Ml Syringe) 30 mg SUBCUT BEDTIME [facility] Last Admin: 12/28/20 20:21 Dose: 30 mg Documented by: Heparin Sodium (Porcine) (Heparin Sodium 100 Units/Ml 5 Ml Syringe) 500 units FLUSH ASDIRECTED PRN PRN Reason: IV Use Last Admin: 12/29/20 10:37 Dose: 500 units Documented by: Levothyroxine Sodium (Levothyroxine 25 Mcg Tab) 75 mcg PO ACBREAKFAST [facility] Last Admin: 12/29/20 07:04 Dose: 75 mcg Documented by: Lorazepam (Lorazepam Oral Concentrate 1mg/0.5ml U/D) 0.25 mg PO Q2H PRN PRN Reason: Nausea Last Admin: 12/25/20 23:27 Dose: 0.25 mg Documented by: Metoprolol Tartrate (Metoprolol Tartrate 50 Mg Tab) 50 mg PO BID [facility] Last Admin: 12/29/20 10:04 Dose: 50 mg Documented by: Morphine Sulfate (Morphine 10 Mg/0.5 Ml Oral Syringe) 2.5 mg PO Q1H PRN PRN Reason: Dyspnea Ondansetron HCl (Ondansetron 4 Mg/2 Ml Sdv) 4 mg IV Q4H PRN PRN Reason: Nausea/Vomiting Pantoprazole Sodium (Pantoprazole 40 Mg Tab.Cr) 40 mg PO ACBREAKFAST [facility] Last Admin: 12/29/20 07:04 Dose: 40 mg Documented by: Polyethylene Glycol (Polyethylene Glycol 3350 Powder 17 Gm Packet) 17 gm PO DAILY PRN PRN Reason: Constipation Sodium Chloride (Sodium Chloride 0.9% 10 Ml Syringe) 10 ml FLUSH ASDIRECTED PRN PRN Reason: Keep Vein Open Discontinued Medications Albuterol/Ipratropium (Albuterol/Ipratropium 3.0-0.5 Mg/3 Ml Neb Soln) 3 ml NEB ONETIME ONE Stop: 12/25/20 18:13 Last Admin: 12/25/20 18:32 Dose: 3 ml Documented by: Furosemide (Furosemide 40 Mg/4 Ml Vial) 40 mg IVPUSH ONETIME ONE Stop: 12/25/20 19:21 Last Admin: 12/25/20 19:43 Dose: 40 mg Documented by: Furosemide (Furosemide 20 Mg/2 Ml Vial) 60 mg IVPUSH NOW ONE Stop: 12/26/20 08:31 Last Admin: 12/26/20 09:47 Dose: 60 mg Documented by: Furosemide (Furosemide 20 Mg/2 Ml Vial) 60 mg IVPUSH NOW ONE Stop: 12/27/20 09:01 Last Admin: 12/27/20 08:59 Dose: 60 mg Documented by: Furosemide (Furosemide 20 Mg/2 Ml Vial) 60 mg IVPUSH NOW ONE Stop: 12/28/20 11:01 Last Admin: 12/28/20 12:20 Dose: 60 mg Documented by: Ceftriaxone Sodium 1 gm/ (Sodium Chloride) 50 mls @ 100 mls/hr IV Q24H [facility] Last Admin: 12/27/20 21:44 Dose: 100 mls/hr Documented by: Doxycycline Hyclate 100 mg/ (Sodium Chloride) 100 mls @ 100 mls/hr IV Q12H [facility] Last Admin: 12/27/20 22:30 Dose: 100 mls/hr Documented by: Ondansetron HCl (Ondansetron 4 Mg/2 Ml Sdv) 4 mg IVPUSH ONETIME ONE Stop: 12/25/20 19:20 Last Admin: 12/25/20 19:43 Dose: 4 mg Documented by: Potassium Chloride (Potassium Chloride 20 Meq Tab.Er) 40 meq PO ONETIME ONE Stop: 12/28/20 09:01 Last Admin: 12/28/20 10:11 Dose: 40 meq Documented by:
== END 2020-12-29 13:45 | disposition home health service (06) | DRG 291 ==
LOC: JP.ED 18:06 → JP.ICU 21:16 → JP.MS 12-27 13:48
PROVIDERS: ADMIT Hospitalist; ATTEND Internal Medicine
DX: R06.00 Dyspnea, unspecified (principal); I13.0 Hypertensive heart and chronic kidney disease with heart failure and stage 1 through stage 4 chronic kidney disease, or unspecified chronic kidney disease; N18.31 Chronic kidney disease, stage 3a; I50.9 Heart failure, unspecified; C77.2 Secondary and unspecified malignant neoplasm of intra-abdominal lymph nodes; I50.33 Acute on chronic diastolic (congestive) heart failure; J96.01 Acute respiratory failure with hypoxia; N17.9 Acute kidney failure, unspecified; N18.4 Chronic kidney disease, stage 4 (severe); C25.9 Malignant neoplasm of pancreas, unspecified; D84.9 Immunodeficiency, unspecified; Z51.5 Encounter for palliative care; Z66 Do not resuscitate; D63.1 Anemia in chronic kidney disease; D69.6 Thrombocytopenia, unspecified; M48.061 Spinal stenosis, lumbar region without neurogenic claudication; Z79.890 Hormone replacement therapy; H54.7 Unspecified visual loss; Z88.8 Allergy status to other drugs, medicaments and biological substances; E78.00 Pure hypercholesterolemia, unspecified; K21.9 Gastro-esophageal reflux disease without esophagitis; M19.90 Unspecified osteoarthritis, unspecified site; G43.909 Migraine, unspecified, not intractable, without status migrainosus; E03.9 Hypothyroidism, unspecified; E11.22 Type 2 diabetes mellitus with diabetic chronic kidney disease; Z79.899 Other long term (current) drug therapy; Z79.82 Long term (current) use of aspirin; Z79.84 Long term (current) use of oral hypoglycemic drugs; Z79.02 Long term (current) use of antithrombotics/antiplatelets; Z88.2 Allergy status to sulfonamides; Z88.1 Allergy status to other antibiotic agents; Z87.442 Personal history of urinary calculi; Z90.710 Acquired absence of both cervix and uterus; Z86.73 Personal history of transient ischemic attack (TIA), and cerebral infarction without residual deficits; Z86.718 Personal history of other venous thrombosis and embolism; Z79.01 Long term (current) use of anticoagulants; Z96.659 Presence of unspecified artificial knee joint; Z87.891 Personal history of nicotine dependence; Z92.21 Personal history of antineoplastic chemotherapy; M79.652 Pain in left thigh
CPT/HCPCS: 36415; 36600; 71045; 71045-26; 71250; 72131; 73552-LT; 80048; 80053; 81001; 82803; 83605; 83735; 83880; 84145; 84484; 85025; 87040; 93005; 93306; 94640; 96374; 96375; 99283; 99285-25; A9270-GY; C1751; J0696; J1100; J1642; J1650; J1940; J2405; J3490; J7620-GY